=== PATIENT | female | born 1980 | race Caucasian/White ===

== ENCOUNTER 2017-04-30 20:13 | Emergency (ER) | payer OTHER ==
--- NOTE | 2017-04-30 20:49 | ERPHSYRPT ---
- History of Present Illness Time Seen by Provider: 04/30/17 20:40 Source: patient Exam Limitations: no limitations Patient Subjective Stated Complaint: Pt C/O right lateral foot pain for 3 days. Denies specific injury. Sts has been working more than normal. Rates pain 8/ 10. Sts current prescription pain medication she takes for her back is not helping the pain. Triage Nursing Assessment: Pt alert, oriented, answers all questions appropriately. Skin pink, warm, dry. Resps non-labored. Pt ambulatory with limp noted however gait steady. + pedal pulses noted. Cap refill less than 3 seconds. Facial grimace with light touch right lateral midfoot. Physician History: Pt is c/o right foot swelling and pain x 3 days, she does not recall any injury , but was diagnosed with right thigh superficial phlebitis 3 days ago, and started on Aspirin. She denies fever, chest pain, cough, SOB, nausea, or other complaints. Method of Injury: unknown Occurred: days ago (3) Severity of Pain-Max: mild Severity of Pain-Current: mild Lower Extremities Pain: foot: right Modifying Factors: Improves With: immobilization, movement Associated Symptoms: none Allergies/Adverse Reactions: erythromycin base Adverse Reaction (Verified 04/30/17 20:19) Itching PT STATES ITCHING/SWELLING Home Medications: Citalopram Hydrobromide [Celexa] 40 mg PO DAILY 05/10/14 [History] Cyclobenzaprine HCl 10 mg [Cyclobenzaprine 10 MG] 10 mg PO TID 05/10/14 [ History] Gabapentin [Neurontin] 600 mg PO TID 05/10/14 [History] Glimepiride 4 mg [Amaryl 4 mg] 4 mg PO DAILY 05/10/14 [History] Levothyroxine Sodium 88 Mcg [Synthroid 88 Mcg] 88 mcg PO DAILY 05/10/14 [ History] Lisinopril 20 mg PO DAILY 05/10/14 [History] Lisinopril/Hydrochlorothiazide [Lisinopril-Hctz 10-12.5 mg Tab] 10 - 12.5 mg PO BID 05/10/14 [History] Carvedilol 3.125 mg [Coreg 3.125 MG] 3.125 mg PO BID 06/20/15 [History] Hydrocodone/APAP 10/325 mg [[place] 10/325 MG Tablet] 1 tab PO Q6HPRN PRN [History] Insulin Glulisine [Apidra Solostar] 20 unit SQ TIDWMEALS 05/05/16 [History] Insulin Degludec [Tresiba Flextouch U-100] 65 unit SQ HS 02/15/17 [History] Trazodone HCl 150 mg PO HS 02/15/17 [History] Hx Influenza Vaccination/Date Given: No Hx Pneumococcal Vaccination/Date Given: No Immunizations Up to Date: Yes - Review of Systems Constitutional: No Symptoms Musculoskeletal: Joint Pain, Other (right foot swelling) All Other Systems: Reviewed and Negative - Past Medical History Pertinent Past Medical History: Yes Neurological History: Migraines, Peripheral Neuropathy ENT History: No Pertinent History Cardiac History: Hypertension Respiratory History: No Pertinent History Endocrine Medical History: Diabetes Type II, Hypothyroidism Musculoskeletal History: Osteoarthritis GI Medical History: Polyps History: No Pertinent History, Other Psycho-Social History: Depression Female Reproductive Disorders: No Pertinent History Other Medical History: kidney stones in past,scoliosis - Past Surgical History Past Surgical History: Yes Neuro Surgical History: No Pertinent History Cardiac: No Pertinent History, Other Respiratory: No Pertinent History Gastrointestinal: No Pertinent History Genitourinary: No Pertinent History Musculoskeletal: No Pertinent History Female Surgical History: Section, Tubal Ligation Other Surgical History: , kidney stones removed, tubes in ears times 2,tonsil - Social History Smoking Status: Current every day smoker How long have you smoked: 15 Exposure to second hand smoke: No Drug Use: none Patient Lives Alone: No - Female History Hx Now: No - Nursing Vital Signs Nursing Vital Signs: Initial Vital Signs Temperature 98.4 F 04/30/17 20:24 Pulse Rate 113 H 04/30/17 20:24 Respiratory Rate 18 04/30/17 20:24 Blood Pressure 178/101 04/30/17 20:24 O2 Sat by Pulse Oximetry 100 04/30/17 20:24 Pain Scale Pain Intensity 9 - Physical Exam General Appearance: no apparent distress Eyes, Ears, Nose, Throat Exam: normal ENT inspection Neck Exam: normal inspection, non-tender Cardiovascular/Respiratory Exam: chest non-tender, normal breath sounds, regular rate/rhythm, heart sounds normal, No no JVD Gastrointestinal/Abdominal Exam: non-tender, soft, no organomegaly Back Exam: normal inspection, No CVA tenderness Legs Exam: right leg: pain (right medial thigh: superficial thrombophlebitis, long, serpiginous induration, but no skin redness or edema.), bilateral leg: other (no direct calf tenderness, swelling, James's signs are negative) Ankle Exam: right ankle: non-tender, normal inspection Foot Exam: right foot: soft tissue tenderness, swelling (right lateral foot, no skin changes, discoloration.) Neuro/Tendon Exam: normal motor functions Mental Status Exam: alert, oriented x 3, cooperative Skin Exam: normal color, warm, dry, No rash SpO2 Interpretation: normal SpO2: 100 Oxygen Delivery: Room Air - Radiology Exams Foot X-ray Interpretation: Interpreted by me, Other (nondisplaced fracture of the 5th metatarsal base) - Radiology Ultrasound Exam Venous Lower Extremity Ultrasound: Other (negative DVT) Ordered Tests: Active Orders 24 hr Category Date Time Status IV Insertion STAT Care 04/30/17 22:08 Active ANKLE (3 VIEWS) Stat Exams 04/30/17 Completed FOOT (MINIMUM 3 VIEWS) Stat Exams 04/30/17 Completed VENOUS UNILAT/LIMITED EXTREMIT [US] Stat Exams 04/30/17 Completed ABG [ARTERIAL BLOOD GASES] Stat Lab 04/30/17 22:39 Completed BMP Stat Lab 04/30/17 21:09 Completed CBC W DIFF Stat Lab 04/30/17 21:09 Completed Glucose Stat Lab 04/30/17 00:01 Completed Uric Acid Stat Lab 04/30/17 21:09 Completed Medication Summary Discontinued Medications Generic Name Dose Route Start Last Admin Trade Name Freq PRN Reason Stop Dose Admin Sodium Chloride 1,000 mls @ 999 mls/hr 04/30/17 22:08 04/30/17 22:41 Sodium Chloride 0.9% 1000 Ml IV 04/30/17 23:08 999 mls/hr .Q1H1M STA Administration Sodium Chloride Confirm 04/30/17 22:39 Sodium Chloride 0.9% 1000 Ml Administered 04/30/17 22:40 Dose 1,000 mls @ ud .ROUTE .STK-MED ONE Ibuprofen 400 mg 04/30/17 23:42 04/30/17 23:46 Motrin 400 Mg PO 04/30/17 23:43 400 mg STAT ONE Administration Ibuprofen Confirm 04/30/17 23:46 Motrin 400 Mg Administered 04/30/17 23:47 Dose 400 mg .ROUTE .STK-MED ONE Insulin Human Regular 10 unit 04/30/17 22:09 04/30/17 22:41 Novolin R IV 04/30/17 22:10 10 unit STAT ONE Administration Insulin Human Regular Confirm 04/30/17 22:39 Novolin R Administered 04/30/17 22:40 Dose 10 unit .ROUTE .STK-MED ONE Lab/Rad Data: Laboratory Result Diagrams 04/30/17 21:09 04/30/17 21:09 Laboratory Results 04/30/17 04/30/17 04/30/17 Range/Units 22:39 21:09 21:09 WBC 14.8 H (4.0-10.5) K/mm3 RBC 4.76 (4.1-5.4) M/mm3 Hgb 15.0 (12.0-16.0) gm/dl Hct 44.8 (35-47) % MCV 94.1 (78-100) fl MCH 31.5 (26-32) pg MCHC 33.5 (32-36) g/dl RDW 13.6 (11.5-14.0) % Plt Count 319 (150-450) K/mm3 MPV 11.2 H (6-9.5) fl Gran % 82.1 H (36.0-66.0) % Lymphocytes % 12.2 L (24.0-44.0) % Monocytes % 5.1 (0.0-12.0) % Eosinophils % 0.3 (0.00-5.0) % Basophils % 0.3 (0.0-0.4) % Basophils # 0.04 (0-0.4) Puncture Site RW pCO2 29 L (35-45) mmHg pO2 46 L* (75-100) mmHg Base Excess -6.9 L (-2.0-2.0) O2 Saturation 83.5 L (94-100) g/dF ABG pH 7.37 (7.35-7.45) ABG HCO3 16.8 L* (22-28) ABG O2 Sat (Measured) 91.9 L (95-100) % Kermit Test YES A-a Gradient 67 a/A Ratio 0.41 Hemoglobin 15.7 Carboxyhemoglobin 7.8 H* (0.0-6.9) % THgb Methemoglobin 1.3 L (1.4-1.5) % Temperature 37.0 C POC O2 Flow Rate 21 % Sodium 129 L (136-145) mEq/L Potassium 3.9 4.4 (3.5-5.1) mEq/L Chloride 93 L (98-107) mEq/L Carbon Dioxide 20.3 L (21-32) mEq/L Anion Gap 19.8 H (5-15) MEQ/L BUN 14 (9-20) mg/dL Creatinine 1.09 (0.55-1.30) mg/dl Estimated GFR > 60 ML/MIN Glucose 747 H* (70-110) MG/DL Uric Acid 6.0 (2.6-6.0) mg/dL Calcium 9.2 (8.5-10.1) mg/dL 04/30/17 Range/Units 00:01 WBC (4.0-10.5) K/mm3 RBC (4.1-5.4) M/mm3 Hgb (12.0-16.0) gm/dl Hct (35-47) % MCV (78-100) fl MCH (26-32) pg MCHC (32-36) g/dl RDW (11.5-14.0) % Plt Count (150-450) K/mm3 MPV (6-9.5) fl Gran % (36.0-66.0) % Lymphocytes % (24.0-44.0) % Monocytes % (0.0-12.0) % Eosinophils % (0.00-5.0) % Basophils % (0.0-0.4) % Basophils # (0-0.4) Puncture Site pCO2 (35-45) mmHg pO2 (75-100) mmHg Base Excess (-2.0-2.0) O2 Saturation (94-100) g/dF ABG pH (7.35-7.45) ABG HCO3 (22-28) ABG O2 Sat (Measured) (95-100) % Kermit Test A-a Gradient a/A Ratio Hemoglobin Carboxyhemoglobin (0.0-6.9) % THgb Methemoglobin (1.4-1.5) % Temperature C POC O2 Flow Rate % Sodium (136-145) mEq/L Potassium (3.5-5.1) mEq/L Chloride (98-107) mEq/L Carbon Dioxide (21-32) mEq/L Anion Gap (5-15) MEQ/L BUN (9-20) mg/dL Creatinine (0.55-1.30) mg/dl Estimated GFR ML/MIN Glucose 323 H (70-110) MG/DL Uric Acid (2.6-6.0) mg/dL Calcium (8.5-10.1) mg/dL - Progress Progress: improved Progress Note: 05/01/17 00:54 Blood sugar improved after iv fluids and Isnulin, it is 323, Pain controlled with Motrin. I explained her our results, she understood, and will follow up with her PCP and Ambulatory Service Representative next week. - Departure Time of Disposition: 00:55 Departure Disposition: Home Clinical Impression: Hyperglycemia Metatarsal stress fracture of right foot Qualifiers: Encounter type: initial encounter Qualified Code(s): M84.374A - Stress fracture , right foot, initial encounter for fracture Condition: Stable Critical Care Time: Yes Critical Care Time(excluding separately billable procedures): 30-74 minutes Referrals: IMELDA WEBB [Primary Care Provider] - Instructions: Foot Fracture, Hyperglycemia -- Adult Additional Instructions: Rest with elevated leg x 2-3 days, apply ice to swelling, return if severe pain , swelling, discoloration of the toes, follow up with your PCP and Ambulatory Service Representative next week!
[2017-04-30 21:41] LABS: BASOPHIL % 0.3 % (0.0-0.4); Eosinophil % 0.3 % (0.00-5.0); Granulocytes % 82.1 % (36.0-66.0); Lymphocytes % 12.2 % (24.0-44.0); Mean Cell Volume 94.1 fl (78-100); Mean Corpuscular Hemoglobin 31.5 pg (26-32); Mean Platelet Volume 11.2 fl (6-9.5); Monocytes % 5.1 % (0.0-12.0); Platelet Count 319 K/mm3 (150-450); Red Blood Count 4.76 M/mm3 (4.1-5.4); Red Cell Distribution Width 13.6 % (11.5-14.0); White Blood Count 14.8 K/mm3 (4.0-10.5)
[2017-04-30 21:52] LABS: ANION GAP 19.8 MEQ/L (5-15); BLOOD UREA NITROGEN 14 mg/dL (9-20); CHLORIDE 93 mEq/L (98-107); Carbon Dioxide 20.3 mEq/L (21-32); Potassium 4.4 mEq/L (3.5-5.1); SODIUM 129 mEq/L (136-145)
[2017-04-30 22:06] LABS: Glucose 747 MG/DL (70-110)
[2017-04-30] MEDS ORDERED: Sodium Chloride 0.9% 1000 ML 1,000 ML IV STA (22:08)
[2017-04-30] MEDS ORDERED: NovoLIN R IV ONE (22:09)
--- NOTE | 2017-04-30 22:33 | XRAY ---
Indication: Pain and swelling. Thrombophlebitis diagnosis 3 days ago. Comparison: None 3 nonweightbearing views of the right foot demonstrates tiny heel spurs and nondisplaced healing fracture involving the proximal shaft of the fifth metatarsal. No other bony, articular, or soft tissue abnormalities.
--- NOTE | 2017-04-30 22:33 | XRAY ---
Indication: Pain and swelling. Thrombophlebitis diagnosis 3 days ago. Comparison: None 3 views of the right ankle demonstrates tiny heel spurs and nondisplaced healing fracture involving the proximal shaft of the fifth metatarsal. No other bony, articular, or soft tissue abnormalities
--- NOTE | 2017-04-30 22:37 | XRAY ---
Indication: Right ankle/foot swelling and pain. Two-dimensional sonogram and color Doppler imaging of the major venous vessels of the right leg was performed. Comparison: April 27, 2017. Again no thrombus seen in the examined deep venous vessels of the right leg including greater saphenous vein. Veins demonstrate normal compressibility. Venous waveforms are normal with and without augmentation. Lower medial thigh/knee again demonstrates subcutaneous venous varicosities with again intraluminal echogenicities now occluded. Impression: Lower medial thigh/knee occluding thrombophlebitis. Remaining right leg negative for DVT. Comment: Preliminary report was given.
[2017-04-30] MEDS ORDERED: NovoLIN R ONE (22:39)
[2017-04-30] MEDS ORDERED: Sodium Chloride 0.9% 1000 ML 1,000 ML ONE (22:39)
[2017-04-30 22:40] LABS: A-aADO2 67; ARTERIAL BLD GAS O2 SATURATION 91.9 % (95-100); ARTERIAL BLOOD GAS BASE EXCESS -6.9 (-2.0-2.0); ARTERIAL BLOOD GAS FIO2 21 %; ARTERIAL BLOOD GAS pH 7.37 (7.35-7.45)
[2017-04-30 22:41] LABS: ALLEN TEST OK? YES; ARTERIAL BLOOD GAS PO2 46 mmHg (75-100)
[2017-04-30] MEDS ORDERED: MOTRIN 400 MG PO ONE (23:42)
[2017-04-30] MEDS ORDERED: MOTRIN 400 MG ONE (23:46)
[2017-05-01 01:29] VITALS: BP 130/79; PULSE 99; O2SAT 98
== END 2017-05-01 01:30 | disposition home or self-care (01) ==
LOC: ED 20:13
DX: M84.374A Stress fracture, right foot, initial encounter for fracture (principal); R73.9 Hyperglycemia, unspecified; M79.671 Pain in right foot; Z79.899 Other long term (current) drug therapy; Z79.84 Long term (current) use of oral hypoglycemic drugs; Z79.4 Long term (current) use of insulin; Z79.891 Long term (current) use of opiate analgesic
CPT/HCPCS: 36000; 36415; 36600; 73610; 73630; 80048; 82375; 82803; 82947; 84550; 85025; 93971; 96360; 96374; 99284; A9270-GY

== ENCOUNTER 2017-09-08 07:50 | Day surgery (SDC) | payer OTHER ==
[2017-09-08] MEDS ORDERED: Lactated Ringers 1,000 ML IV ONE (07:51)
[2017-09-08] MEDS ORDERED: Xylocaine-Mpf 2 ML IJ ONE (07:51)
[2017-09-08] MEDS ORDERED: DIPRIVAN 200 MG/20 ML IV ONE (07:51)
[2017-09-08] MEDS ORDERED: DEXAMETHASONE 10 MG/ML VIAL PF IJ ONE (07:51)
--- NOTE | 2017-09-08 11:09 | XRAY ---
Indication: Left L5-S1 SHANIA. Intraoperative fluoroscopy was provided for 51 seconds. 5 digital spot images submitted for interpretation demonstrates single posterior spinal needle tip projecting over the left L5-S1 facet. Tiny contrast injected for needle tip placement. Correlate with intraoperative findings/report.
--- NOTE | 2017-09-08 11:12 | XRAY ---
51 seconds fluoroscopy time in surgery for left L5-S1 SHANIA.
--- NOTE | 2017-09-09 08:25 | OP ---
DATE OF PROCEDURE: 09/08/2017 0948 SURGEON: Laurence Graf D.O. PREOPERATIVE DIAGNOSES: Degenerative lumbar spine disease, lumbar spondylosis. POSTOPERATIVE DIAGNOSES: Degenerative lumbar spine disease, lumbar spondylosis. PROCEDURE PERFORMED: Left L5 epidural steroid injection under fluoroscopic guidance. DESCRIPTION OF PROCEDURE: The patient was taken to the operating room and laid in the prone position on the table. Skin over the injection site was prepped and draped in sterile fashion. Under fluoroscope bony anatomy at the targeted injection site was visualized. Induction agent was given as per anesthesia while vital signs were monitored. Local anesthetic agent was introduced to anesthetize the skin in the subcutaneous tissue through injection site. Under fluoroscopic guidance a #22-gauge standard spinal needle was advanced into the target epidural space. 1 cc of preservative free Decadron was injected into each of the target epidural space. While the needle was being removed normal saline was simultaneously infiltrated to avoid sterile needle tract. Skin was cleansed with alcohol and then a bandage was applied. After the procedure there was 80% pain reduction after the procedure. No complications or adverse consequences were observed. The patient was returned to the holding area until stabilized before discharge to home. The patient will be followed up within ten days after the injection for reevaluation.
== END 2017-09-08 10:46 | disposition home or self-care (01) ==
LOC: SDC-PAIN 07:50
PROVIDERS: ATTEND Internal Medicine
DX: M54.16 Radiculopathy, lumbar region (principal); M47.26 Other spondylosis with radiculopathy, lumbar region; M54.5 Low back pain; M62.838 Other muscle spasm
CPT/HCPCS: 64483; 72100; 77003; J2704; Q9967; J1100

== ENCOUNTER 2018-11-09 09:38 | Day surgery (SDC) | payer OTHER ==
[2018-11-09] MEDS ORDERED: Depo-Medrol 40 MG/ML IM ONE (09:39)
[2018-11-09] MEDS ORDERED: Marcaine 0.5% SDV 10 ML IJ ONE (09:39)
[2018-11-09] MEDS ORDERED: DIPRIVAN 200 MG/20 ML IV ONE (11:07)
[2018-11-09] MEDS ORDERED: Ketamine HCl 50 MG/ML ONE (11:08)
--- NOTE | 2018-11-09 12:08 | XRAY ---
Indication: Bilateral L4-S1 MBB. Intraoperative fluoroscopy was provided for 7 seconds. Single digital spot image submitted for interpretation demonstrates posterior needle tips projecting over the expected course of the left and right L4-S1 nerve roots. Correlate with intraoperative findings/report.
--- NOTE | 2018-11-09 12:10 | XRAY ---
7 seconds of fluoroscopy was used in surgery for bilateral L4-L5 and L5-S1 MBB.
[2018-11-09] MEDS ORDERED: Lactated Ringers 1,000 ML IV ONE (13:33)
== END 2018-11-09 11:38 | disposition home or self-care (01) ==
LOC: SDC-PAIN 09:38
PROVIDERS: ATTEND Psychiatry & Neurology Pain Medicine
DX: M47.816 Spondylosis without myelopathy or radiculopathy, lumbar region (principal); E11.9 Type 2 diabetes mellitus without complications; I10 Essential (primary) hypertension; F32.9 Major depressive disorder, single episode, unspecified
CPT/HCPCS: 64493; 64494; 72020; 77002; 82962; 84703; J1030; J2704

== ENCOUNTER 2018-12-14 07:55 | Day surgery (SDC) | payer OTHER ==
[2018-12-14] MEDS ORDERED: Xylocaine 1% Vial 30 ML PF IJ ONE (07:56)
[2018-12-14] MEDS ORDERED: Marcaine 0.5% SDV 10 ML IJ ONE (07:56)
[2018-12-14] MEDS ORDERED: Depo-Medrol 40 MG/ML IM ONE (07:56)
[2018-12-14] MEDS ORDERED: Ketamine HCl 50 MG/ML ONE (08:36)
[2018-12-14] MEDS ORDERED: DIPRIVAN 200 MG/20 ML IV ONE ×2 (09:18→09:31)
--- NOTE | 2018-12-14 12:12 | XRAY ---
Indication: Left L4-S1 RFA. Intraoperative fluoroscopy was provided for 21 seconds. 2 digital spot images submitted for interpretation demonstrates posterior needle tips projecting over the expected course of the left L4-S1 nerve roots. Correlate with intraoperative findings/report.
--- NOTE | 2018-12-14 12:21 | XRAY ---
21 seconds fluoroscopy time in surgery for left L4-S1 RFA.
[2018-12-14] MEDS ORDERED: Lactated Ringers 1,000 ML IV ONE (15:50)
== END 2018-12-14 09:55 | disposition home or self-care (01) ==
LOC: SDC-PAIN 07:55
PROVIDERS: ATTEND Psychiatry & Neurology Pain Medicine
DX: M47.816 Spondylosis without myelopathy or radiculopathy, lumbar region (principal); E11.9 Type 2 diabetes mellitus without complications; I10 Essential (primary) hypertension; Z79.899 Other long term (current) drug therapy
CPT/HCPCS: 72100; 77002; 84703; J1030; J2001; J2704

== ENCOUNTER 2019-01-18 08:00 | Day surgery (SDC) | payer OTHER ==
[~2019-01-18 08:00] MED LIST: DIPRIVAN 200 MG/20 ML IV ONE; Ketamine HCl 50 MG/ML ONE
[2019-01-18] MEDS ORDERED: Depo-Medrol 40 MG/ML IM ONE (08:01)
[2019-01-18] MEDS ORDERED: Marcaine 0.5% SDV 10 ML IJ ONE (08:01)
[2019-01-18] MEDS ORDERED: Xylocaine 1% Vial 30 ML PF IJ ONE (08:01)
--- NOTE | 2019-01-18 11:37 | XRAY ---
Indication: Right L4-S1 RFA. Intraoperative fluoroscopy was provided for 18 seconds. 3 digital spot images submitted for interpretation demonstrates posterior needle tips projecting over the expected course of the right L4-S1 nerve roots. Correlate with intraoperative findings/report.
--- NOTE | 2019-01-18 13:04 | XRAY ---
18 seconds fluoroscopy time in surgery for right L4-S1 RFA.
[2019-01-18] MEDS ORDERED: Lactated Ringers 1,000 ML IV ONE (13:20)
== END 2019-01-18 09:48 | disposition home or self-care (01) ==
LOC: SDC-PAIN 08:00
PROVIDERS: ATTEND Psychiatry & Neurology Pain Medicine
DX: M47.816 Spondylosis without myelopathy or radiculopathy, lumbar region (principal); E11.9 Type 2 diabetes mellitus without complications; I10 Essential (primary) hypertension; R00.0 Tachycardia, unspecified; Z79.899 Other long term (current) drug therapy
CPT/HCPCS: 64635; 64636; 72100; 77002; 82962; 84703; J1030; J2001; J2704

== ENCOUNTER 2019-05-13 17:56 | Emergency (ER) | payer OTHER ==
[2019-05-13 19:27] VITALS: O2SAT 100
--- NOTE | 2019-05-13 19:42 | ERPHSYRPT ---
- History of Present Illness Time Seen by Provider: 05/13/19 19:28 Source: patient Exam Limitations: no limitations Patient Subjective Stated Complaint: pt states, "My rt great toe started hurting on Wednesday. I have applied neosporin to it but the pain has just gotten worse". Triage Nursing Assessment: rt great toe is reddned around, has blister to left medial side of toenail with open area 1cm L x 1cm W x 0.1cm D medial to that. Pt states it has been draining clear, yellow. Pt has edema to rt lower leg, nonpitting. Pt stands on her feet at work. Pt rates pain a 10. Physician History: Patient has injury to right great toe on the medial side. Patient states she stubbed it earlier this week. She has had some continued pain and drainage since then. She does have known diabetes. Location: great right toe Quality: wound Radiation: none Severity: mild Duration: a few days Timing: after injury Modifying factors/associated signs and symptoms: neosporin Allergies/Adverse Reactions: erythromycin base Adverse Reaction (Verified 04/30/17 20:19) Itching PT STATES ITCHING/SWELLING Home Medications: Citalopram Hydrobromide [Celexa] 40 mg PO DAILY 05/10/14 [History] Gabapentin [Neurontin] 800 mg PO TID 05/10/14 [History] Glimepiride 4 mg [Amaryl 4 mg] 4 mg PO DAILY 05/10/14 [History] Levothyroxine Sodium 88 Mcg [Synthroid 88 Mcg] 88 mcg PO DAILY 05/10/14 [ History] Lisinopril 20 mg PO DAILY 05/10/14 [History] Lisinopril/Hydrochlorothiazide [Lisinopril-Hctz 10-12.5 mg Tab] 10 - 12.5 mg PO BID 05/10/14 [History] Carvedilol 3.125 mg [Coreg 3.125 MG] 3.125 mg PO BID 06/20/15 [History] Hydrocodone/APAP 10/325 mg [[place] 10/325 MG Tablet] 1 tab PO Q6HPRN PRN [History] Insulin Glulisine [Apidra Solostar] 20 unit SQ TIDWMEALS 05/05/16 [History] Insulin Degludec [Tresiba Flextouch U-100] 65 unit SQ HS 02/15/17 [History] Trazodone HCl 150 mg PO HS 02/15/17 [History] Omeprazole 20 MG [Prilosec 20 mg] 20 mg PO DAILY 07/13/17 [History] Celecoxib [Celebrex] 200 mg PO DAILY 09/20/17 [History] Hx Tetanus, Diphtheria Vaccination/Date Given: Yes Hx Influenza Vaccination/Date Given: No Hx Pneumococcal Vaccination/Date Given: No Immunizations Up to Date: Yes - Review of Systems Constitutional: No Fever, No Chills Eyes: No Symptoms Ears, Nose, & Throat: No Symptoms Respiratory: No Cough, No Dyspnea Cardiac: No Chest Pain, No Edema, No Syncope Abdominal/Gastrointestinal: No Abdominal Pain, No Nausea, No Vomiting, No Diarrhea Genitourinary Symptoms: No Dysuria Musculoskeletal: Other (foot wound, toe wound ), No Back Pain, No Neck Pain Skin: No Rash Neurological: No Dizziness, No Focal Weakness, No Sensory Changes Psychological: No Symptoms Endocrine: No Symptoms All Other Systems: Reviewed and Negative - Past Medical History Pertinent Past Medical History: Yes Neurological History: No Pertinent History ENT History: No Pertinent History Cardiac History: Hypertension Respiratory History: No Pertinent History Endocrine Medical History: Diabetes Type II, Hypothyroidism Musculoskeletal History: Osteoarthritis GI Medical History: Polyps History: No Pertinent History, Other Psycho-Social History: Depression Female Reproductive Disorders: No Pertinent History Other Medical History: kidney stones in past,scoliosis - Past Surgical History Past Surgical History: Yes Neuro Surgical History: No Pertinent History Cardiac: No Pertinent History, Other Respiratory: No Pertinent History Gastrointestinal: No Pertinent History Genitourinary: No Pertinent History Musculoskeletal: No Pertinent History Female Surgical History: Section, Tubal Ligation Other Surgical History: , kidney stones removed, tubes in ears times 2,tonsil - Social History Smoking Status: Current every day smoker How long have you smoked: 18 yrs Exposure to second hand smoke: No Drug Use: marijuana Patient Lives Alone: No - Female History Hx Last Menstrual Period: ablation Hx Now: No - Nursing Vital Signs Nursing Vital Signs: Initial Vital Signs Temperature 98.0 F 05/13/19 19:26 Pulse Rate 103 H 05/13/19 19:26 Respiratory Rate 15 05/13/19 19:26 Blood Pressure 177/95 05/13/19 19:26 O2 Sat by Pulse Oximetry 100 05/13/19 19:26 Pain Scale Pain Intensity 9 - Physical Exam General Appearance: alert Eyes, Ears, Nose, Throat Exam: moist mucous membranes Neck Exam: non-tender, supple Cardiovascular/Respiratory Exam: chest non-tender, normal breath sounds, regular rate/rhythm, no respiratory distress Gastrointestinal/Abdominal Exam: non-tender, guarding Back Exam: normal inspection, No vertebral tenderness Neuro/Tendon Exam: normal sensation, normal motor functions Mental Status Exam: alert, oriented x 3, cooperative Skin Exam: normal color, warm, dry SpO2: 100 Comments: Patient has toe injury, no obvious abscess or deformity. Appears to be diabetic foot ulcer with some surrounding cellulitis. full ROM without pain. no signs of septic join. Ordered Tests: Medication Summary Discontinued Medications Generic Name Dose Route Start Last Admin Trade Name Freq PRN Reason Stop Dose Admin Doxycycline Hyclate 100 mg 05/13/19 20:02 05/13/19 20:06 Vibramycin 100 Mg PO 05/13/19 20:03 100 mg STAT ONE Administration Doxycycline Hyclate Confirm 05/13/19 20:05 Vibramycin 100 Mg Administered 05/13/19 20:06 Dose 100 mg .ROUTE .STK-MED ONE - Progress Progress: unchanged, improved Progress Note: 05/13/19 21:29 We will give one dose of doxycycline here in the ER. It does appear to be infected toe wound. Patient has follow up with PCP on Wednesday. She will return here for new or changing symptoms. - Departure Departure Disposition: Home, Extended Care Facility Clinical Impression: Toe ulcer due to DM, Cellulitis Condition: Stable Critical Care Time: No Referrals: IMELDA WEBB [Primary Care Provider] - Instructions: Cellulitis (Skin Infection), Adult (DC), Toe Injury (DC) Additional Instructions: Reexam with PCP in 24-48 hours Prescriptions: Doxycycline Hyclate 100 mg [Vibramycin 100 MG] 100 mg PO BID #14 tab
[2019-05-13] MEDS ORDERED: Vibramycin 100 MG PO ONE (20:02)
[2019-05-13] MEDS ORDERED: Vibramycin 100 MG ONE (20:05)
[2019-05-13 20:21] VITALS: BP 158/82; PULSE 85
== END 2019-05-13 20:18 | disposition home or self-care (01) ==
LOC: ED 17:56
DX: E11.622 Type 2 diabetes mellitus with other skin ulcer (principal); L03.90 Cellulitis, unspecified; Z79.899 Other long term (current) drug therapy; I10 Essential (primary) hypertension; E03.9 Hypothyroidism, unspecified
CPT/HCPCS: 99283; A9270-GY

== ENCOUNTER 2019-08-04 11:46 | Emergency (ER) | payer OTHER ==
--- NOTE | 2019-08-04 11:50 | ERPHSYRPT ---
- History of Present Illness Time Seen by Provider: 08/04/19 11:49 Source: patient Exam Limitations: no limitations Physician History: This is a 39-year-old white female who is insulin-dependent diabetic, has hypertension and peripheral neuropathy who presents with pain in the coccyx area after falling yesterday evening. Patient slipped on her steps at her home patient denies injury or pain at any other site. Patient use naproxen without much benefit. Patient is here for evaluation and management. Occurred: yesterday Reason for Fall: slipped, fell from standing pos Injuries/Pain Location: back, lower (Including sacrum and coccyx) Loss of Consciousness: no loss of consciousness Quality: aching Severity of Pain-Max: moderate Severity of Pain-Current: moderate Modifying Factors: Improves With: movement (Worsens) Associated Symptoms (Fall): trouble walking (Hurts to walk) Allergies/Adverse Reactions: erythromycin base Adverse Reaction (Verified 04/30/17 20:19) Itching PT STATES ITCHING/SWELLING Home Medications: Citalopram Hydrobromide [Celexa] 40 mg PO DAILY 05/10/14 [History] Gabapentin [Neurontin] 800 mg PO TID 05/10/14 [History] Glimepiride 4 mg [Amaryl 4 mg] 4 mg PO DAILY 05/10/14 [History] Levothyroxine Sodium 88 Mcg [Synthroid 88 Mcg] 88 mcg PO DAILY 05/10/14 [ History] Lisinopril/Hydrochlorothiazide [Lisinopril-Hctz 10-12.5 mg Tab] 10 - 12.5 mg PO BID 05/10/14 [History] lisinopriL [Lisinopril] 20 mg PO DAILY 05/10/14 [History] Carvedilol 3.125 mg [Coreg 3.125 MG] 3.125 mg PO BID 06/20/15 [History] Hydrocodone/APAP 10/325 mg [[place] 10/325 MG Tablet] 1 tab PO Q6HPRN PRN [History] Insulin Glulisine [Apidra Solostar] 20 unit SQ TIDWMEALS 05/05/16 [History] Insulin Degludec [Tresiba Flextouch U-100] 65 unit SQ HS 02/15/17 [History] Trazodone HCl 150 mg PO HS 02/15/17 [History] Omeprazole 20 MG [Prilosec 20 mg] 20 mg PO DAILY 07/13/17 [History] Celecoxib [Celebrex] 200 mg PO DAILY 09/20/17 [History] Hx Tetanus, Diphtheria Vaccination/Date Given: Yes Hx Influenza Vaccination/Date Given: No Hx Pneumococcal Vaccination/Date Given: No - Review of Systems Constitutional: No Symptoms Eyes: No Symptoms Ears, Nose, & Throat: No Symptoms Respiratory: No Symptoms Cardiac: No Symptoms Abdominal/Gastrointestinal: No Symptoms Genitourinary Symptoms: No Symptoms Musculoskeletal: Back Pain, Fall, Injury, Other (Sacrum and coccyx pain) Skin: No Symptoms Neurological: No Symptoms Psychological: No Symptoms Endocrine: No Symptoms Hematologic/Lymphatic: No Symptoms Immunological/Allergic: No Symptoms All Other Systems: Reviewed and Negative - Past Medical History Pertinent Past Medical History: Yes Neurological History: Peripheral Neuropathy ENT History: No Pertinent History Cardiac History: High Cholesterol, Hypertension Respiratory History: Pneumonia Endocrine Medical History: Diabetes Type II Musculoskeletal History: Fractures, Osteoarthritis GI Medical History: Polyps History: No Pertinent History, Other Psycho-Social History: Depression Female Reproductive Disorders: No Pertinent History Other Medical History: HX FX 5TH METATARSAL RIGHT AND LEFT WITH MOST RECENT 2016 , CHRONIC BACK ISSUES WITH SCOLIOSIS - Past Surgical History Past Surgical History: Yes Neuro Surgical History: No Pertinent History Cardiac: No Pertinent History, Other Respiratory: No Pertinent History Gastrointestinal: No Pertinent History Genitourinary: No Pertinent History Musculoskeletal: No Pertinent History Female Surgical History: Section, Tubal Ligation Other Surgical History: , kidney stones removed, tubes in ears times 2,tonsil - Social History Smoking Status: Current every day smoker How long have you smoked: 18 yrs Exposure to second hand smoke: No Drug Use: marijuana Patient Lives Alone: No - Nursing Vital Signs Nursing Vital Signs: Initial Vital Signs Temperature 97.0 F 08/04/19 11:48 Pulse Rate 104 H 08/04/19 11:48 Respiratory Rate 18 08/04/19 11:48 Blood Pressure 125/98 08/04/19 11:48 O2 Sat by Pulse Oximetry 100 08/04/19 11:48 Pain Scale Pain Intensity 10 - Renetta Coma Score Best Eye Response ([place]): (4) open spontaneously Best Verbal Response ([place]): (5) oriented Best Motor Response ([place]): (6) obeys commands Renetta Total: 15 - Physical Exam General Appearance: moderate distress, alert, anxiety Head Injury: no evidence of injury Eye Exam: PERRL/EOMI, eyes nml inspection ENT Exam: airway nml Neck Exam: supple, trachea midline, full range of motion, normal alignment Respiratory/Chest Exam: chest tenderness, normal breath sounds, No respiratory distress Gastrointestinal Exam: No soft, No tenderness Genitalia Exam: No tenderness Rectal Exam: No not done Back Exam: decreased range of motion, point tenderness, No CVA tenderness Extremity Exam: normal inspection, normal range of motion, pelvis stable Neurologic Exam: alert, oriented x 3, cooperative, community relations liaison II-XII nml as tested Skin Exam: normal color, warm, dry SpO2 Interpretation: normal O2 Delivery: Room Air Ordered Tests: Active Orders 24 hr Category Date Time Status LUMBAR LIMITED (2 OR 3 VIEWS) Stat Exams 08/04/19 12:23 Completed SACRUM AND COCCYX Stat Exams 08/04/19 13:04 Completed Medication Summary Discontinued Medications Generic Name Dose Route Start Last Admin Trade Name Geoffq PRN Reason Stop Dose Admin Hydromorphone HCl 0.5 mg 08/04/19 12:27 08/04/19 12:37 Hydromorphone 1 Mg/Ml Ampule IM 08/04/19 12:28 0.5 mg STAT ONE Administration Hydromorphone HCl Confirm 08/04/19 12:34 Hydromorphone 1 Mg/Ml Ampule Administered 08/04/19 12:35 Dose 1 mg .ROUTE .STK-MED ONE Ketorolac Tromethamine 60 mg 08/04/19 12:27 08/04/19 12:37 Toradol 30 Mg Injection IM 08/04/19 12:28 60 mg STAT ONE Administration Ketorolac Tromethamine Confirm 08/04/19 12:33 Toradol 30 Mg Injection Administered 08/04/19 12:34 Dose 60 mg .ROUTE .STK-MED ONE Orphenadrine Citrate 60 mg 08/04/19 12:28 08/04/19 12:37 Norflex 60 Mg/2 Ml IM 08/04/19 12:29 60 mg STAT ONE Administration Orphenadrine Citrate Confirm 08/04/19 12:34 Norflex 60 Mg/2 Ml Administered 08/04/19 12:35 Dose 60 mg .ROUTE .STK-MED ONE - Progress Progress: improved Progress Note: 08/04/19 13:27 The x-ray of the sacrum and coccyx reveals no acute bony fractures. The x-ray of the lumbar spine reveals no evidence of acute fracture or subluxation Counseled pt/family regarding: diagnosis, need for follow-up, rad results - Departure Departure Disposition: Home Clinical Impression: Fall, Contusion Condition: Stable Critical Care Time: No Referrals: IMELDA WEBB [Primary Care Provider] - Additional Instructions: Is back to the tender areas 3 times a day for the next 48 hours. Add ibuprofen or naproxen for pain control. Follow-up with your primary care physician for persistent symptoms Prescriptions: Carisoprodol 350 mg [Soma 350 mg] 350 mg PO Q12H PRN PRN #6 tablet MDD 2 PRN Reason: Muscle Spasms Oxycodone HCl/Acetaminophen [Percocet 5-325 mg Tablet] 1 each PO Q12H PRN PRN # 6 tablet MDD 2 PRN Reason: Pain
[2019-08-04] MEDS ORDERED: TORAdol 30 mg Injection IM ONE (12:27)
[2019-08-04] MEDS ORDERED: Hydromorphone 1 mg/ml Ampule IM ONE (12:27)
[2019-08-04] MEDS ORDERED: Norflex 60 MG/2 ML IM ONE (12:28)
[2019-08-04] MEDS ORDERED: TORAdol 30 mg Injection ONE (12:33)
[2019-08-04] MEDS ORDERED: Hydromorphone 1 mg/ml Ampule ONE (12:34)
[2019-08-04] MEDS ORDERED: Norflex 60 MG/2 ML ONE (12:34)
--- NOTE | 2019-08-04 13:17 | XRAY ---
Indication: Pain following fall. Comparison: November 06, 2013. 3 views of the lumbar spine demonstrates stable normal lumbar alignment with minimal L5-S1 disc space narrowing and T10-T11 endplate spurring. No new/acute findings.
--- NOTE | 2019-08-04 13:20 | XRAY ---
Indication: Pain following fall. Comparison: November 06, 2013. 3 views of the sacrum/coccyx again demonstrates sacralized L5 and a few pelvic phleboliths. No new/acute bony, articular, or soft tissue abnormalities.
[2019-08-04 13:53] VITALS: BP 130/89; PULSE 96; O2SAT 97
== END 2019-08-04 13:52 | disposition home or self-care (01) ==
LOC: ED 11:46
DX: S30.0XXA Contusion of lower back and pelvis, initial encounter (principal); W01.0XXA Fall on same level from slipping, tripping and stumbling without subsequent striking against object, initial encounter; Y93.9 Activity, unspecified; Y92.89 Other specified places as the place of occurrence of the external cause; I10 Essential (primary) hypertension; G62.9 Polyneuropathy, unspecified; E11.9 Type 2 diabetes mellitus without complications; E78.00 Pure hypercholesterolemia, unspecified; Z86.010 Personal history of colon polyps
CPT/HCPCS: 72100; 72220; 96372; 99284; J1170; J1885; J2360

== ENCOUNTER 2021-12-10 06:56 | Day surgery (SDC) | payer OTHER ==
[2021-12-10] MEDS ORDERED: Depo-Medrol 40 MG/ML IM ONE (06:57)
[2021-12-10] MEDS ORDERED: Marcaine Mpf 0.5% Vial 30 Ml IJ ONE (06:57)
[2021-12-10] MEDS ORDERED: XYLOCAINE-MPF 1% 5ML SDV IJ ONE (06:57)
[2021-12-10] MEDS ORDERED: DIPRIVAN 200 MG/20 ML IV ONE (08:09)
[2021-12-10] MEDS ORDERED: Lactated Ringers 1,000 ML IV ONE (08:37)
--- NOTE | 2021-12-10 10:48 | XRAY ---
Indication: Left L4-S1 RFA. Intraoperative fluoroscopy provided for 25 seconds. 4 digital spot image submitted for interpretation demonstrates posterior needle tips projecting over the expected left L4-S1 nerve roots. Correlate with intraoperative findings/report.
--- NOTE | 2021-12-10 11:02 | XRAY ---
25 seconds of fluoroscopy was used in surgery for a left L4-S1 RFA.
== END 2021-12-10 08:40 | disposition home or self-care (01) ==
LOC: SDC-PAIN 06:56 → EDSTATUS 11:55
PROVIDERS: ATTEND Psychiatry & Neurology Pain Medicine
DX: M47.816 Spondylosis without myelopathy or radiculopathy, lumbar region (principal); E11.9 Type 2 diabetes mellitus without complications; Z79.899 Other long term (current) drug therapy
CPT/HCPCS: 64635; 64636; 72100; 77002; 81025; 82947; J1030; J2704

== ENCOUNTER 2021-12-17 06:40 | Day surgery (SDC) | payer OTHER ==
[2021-12-17] MEDS ORDERED: Depo-Medrol 40 MG/ML IM ONE (06:41)
[2021-12-17] MEDS ORDERED: Sodium Chloride 0.9(Preservative Free) 10 ML IJ ONE (06:41)
[2021-12-17] MEDS ORDERED: XYLOCAINE-MPF 1% 5ML SDV IJ ONE (06:41)
[2021-12-17] MEDS ORDERED: DIPRIVAN 200 MG/20 ML IV ONE (08:15)
--- NOTE | 2021-12-17 10:05 | XRAY ---
Indication: Right L4-S1 RFA. Intraoperative fluoroscopy provided for 22 seconds. 3 digital spot image submitted for interpretation demonstrate posterior needle tips projecting over the expected right L4-S1 nerve roots. Correlate with intraoperative findings/report.
[2021-12-17] MEDS ORDERED: Lactated Ringers 1,000 ML IV ONE (10:51)
--- NOTE | 2021-12-17 12:06 | XRAY ---
22 seconds of fluoroscopy was used in surgery for a right L4-S1 RFA.
== END 2021-12-17 08:39 | disposition home or self-care (01) ==
LOC: SDC-PAIN 06:40
PROVIDERS: ATTEND Psychiatry & Neurology Pain Medicine
DX: M47.816 Spondylosis without myelopathy or radiculopathy, lumbar region (principal); E11.9 Type 2 diabetes mellitus without complications; Z79.899 Other long term (current) drug therapy
CPT/HCPCS: 64635; 64636; 72100; 77002; 81025; 82947; J1030; J2704

== ENCOUNTER 2022-04-22 08:18 | Day surgery (SDC) | payer OTHER ==
[2022-04-22] MEDS ORDERED: Xylocaine 1% Vial 30 ML PF IJ ONE (08:19)
[2022-04-22] MEDS ORDERED: BUPIVACAINE 0.5% VIAL IJ ONE (08:19)
[2022-04-22] MEDS ORDERED: Decadron 4 MG INJ IV ONE (08:19)
[2022-04-22] MEDS ORDERED: Depo-Medrol 40 MG/ML IM ONE (08:19)
[2022-04-22] MEDS ORDERED: DIPRIVAN 200 MG/20 ML IV ONE (09:56)
[2022-04-22] MEDS ORDERED: Lactated Ringers 1,000 ML IV ONE (10:29)
--- NOTE | 2022-04-22 19:45 | XRAY ---
Indication: Left hip, piriformis, and SI joint injection. Intraoperative fluoroscopy provided for 41 seconds. 5 digital spot images obtained prone submitted for interpretation demonstrates posterior needle tip projecting over the left SI joint. Additional needle tip projects over the left piriformis muscle and lateral to the left femur neck with small amount of contrast injected for both needle tip placement. Correlate with intraoperative findings/report.
--- NOTE | 2022-04-22 20:02 | XRAY ---
41 seconds fluoroscopy time in surgery for injections of the hip, piriformis muscle, and the SI joint on the left side.
== END 2022-04-22 10:35 | disposition home or self-care (01) ==
LOC: SDC-PAIN 08:18
PROVIDERS: ATTEND Psychiatry & Neurology Pain Medicine
DX: M16.12 Unilateral primary osteoarthritis, left hip (principal); M46.1 Sacroiliitis, not elsewhere classified; M79.18 Myalgia, other site; E11.9 Type 2 diabetes mellitus without complications; Z79.899 Other long term (current) drug therapy
CPT/HCPCS: 01992; 20552; 20610; 27096; 72202; 77002; 81025; 82947; G0260; J1030; J1100; J2001; J2704; Q9966

== ENCOUNTER 2022-06-24 08:45 | Day surgery (SDC) | payer OTHER ==
[2022-06-24] MEDS ORDERED: Sodium Chloride 0.9(Preservative Free) 10 ML IJ ONE (08:46)
[2022-06-24] MEDS ORDERED: LIDOCAINE HCL 1% 50 MG/5 ML VL PF IJ ONE (08:46)
[2022-06-24] MEDS ORDERED: Depo-Medrol 40 MG/ML IM ONE (08:46)
--- NOTE | 2022-06-24 11:29 | XRAY ---
Indication: Lumbar SHANIA. Intraoperative fluoroscopy provided for 17 seconds. 3 digital spot images submitted for interpretation demonstrates posterior needle tip projecting just posterior to L4-L5 interspace. Small amount of contrast injected for needle tip placement. Correlate with intraoperative findings/report.
--- NOTE | 2022-06-24 11:29 | XRAY ---
17 seconds of fluoroscopy was used in surgery for a lumbar SHANIA.
[2022-06-24] MEDS ORDERED: DIPRIVAN 200 MG/20 ML IV ONE (13:48)
[2022-06-24] MEDS ORDERED: Lactated Ringers 1,000 ML IV ONE (13:59)
== END 2022-06-24 11:20 | disposition home or self-care (01) ==
LOC: SDC-PAIN 08:45
PROVIDERS: ATTEND Psychiatry & Neurology Pain Medicine
DX: M54.16 Radiculopathy, lumbar region (principal); E11.9 Type 2 diabetes mellitus without complications; Z79.899 Other long term (current) drug therapy
CPT/HCPCS: 62323; 72100; 77003; 81025; 82947; J1030; J2001; J2704; Q9966

== ENCOUNTER 2022-10-28 06:55 | Day surgery (SDC) | payer OTHER ==
[2022-10-28] MEDS ORDERED: Sodium Chloride 0.9(Preservative Free) 10 ML IJ ONE (06:56)
[2022-10-28] MEDS ORDERED: Depo-Medrol 40 MG/ML IM ONE (06:56)
[2022-10-28 07:10] LABS: HCG URINE TEST NEGATIVE (NEGATIVE)
[2022-10-28] MEDS ORDERED: DIPRIVAN 200 MG/20 ML IV ONE ×2 (08:22→08:31)
[2022-10-28] MEDS ORDERED: Lactated Ringers 1,000 ML IV ONE (14:25)
--- NOTE | 2022-10-28 19:18 | XRAY ---
Indication: Caudal SHANIA. Intraoperative fluoroscopy provided for 27 seconds. 2 digital spot image submitted for interpretation demonstrates caudal needle tip projecting mid sacrum. Small amount of contrast injected for needle tip placement. Correlate with intraoperative findings/report.
--- NOTE | 2022-10-28 19:25 | XRAY ---
27 seconds of fluoroscopy was used in surgery for a caudal SHANIA.
== END 2022-10-28 08:51 | disposition home or self-care (01) ==
LOC: SDC-PAIN 06:55
PROVIDERS: ATTEND Psychiatry & Neurology Pain Medicine
DX: M54.16 Radiculopathy, lumbar region (principal); E11.9 Type 2 diabetes mellitus without complications; Z79.899 Other long term (current) drug therapy
CPT/HCPCS: 62323; 72220; 77003; 81025; 82947; J1030; J2704; Q9966

== ENCOUNTER 2022-11-27 18:53 | Observation (INO) | payer OTHER ==
--- NOTE | 2022-11-27 19:15 | ERPHSYRPT ---
- History of Present Illness Time Seen by Provider: 11/27/22 19:14 Source: patient Exam Limitations: no limitations Physician History: This is a 42-year-old white female patient who is diabetic has depression, gastroesophageal reflux disease, hypothyroidism and hypertension and is a patient of nurse practitioner Alyssia. Labs were drawn in the office and the patient's blood sugar was found to be 726 and the potassium was 3.1. Patient has not been feeling well chronically. She also has been having swelling in her bilateral lower extremities for several weeks. Patient has never had ultrasounds but has been told several times that she needs to be evaluated for blood clots. Patient denies chest pain. Patient denies shortness of breath. Patient has no abdominal pain. Severity: moderate Associated Symptoms: denies symptoms, No shortness of breath, No chest pain, No fever Allergies/Adverse Reactions: erythromycin base Adverse Reaction (Verified 11/27/22 19:04) Itching PT STATES ITCHING/SWELLING Home Medications: Citalopram Hydrobromide [Celexa] 40 mg PO DAILY 05/10/14 [History] Gabapentin [Neurontin] 800 mg PO TID 05/10/14 [History] Glimepiride 4 mg [Amaryl 4 mg] 4 mg PO DAILY 05/10/14 [History] Levothyroxine Sodium 88 Mcg [Synthroid 88 Mcg] 88 mcg PO DAILY 05/10/14 [History] Lisinopril/Hydrochlorothiazide [Lisinopril-Hctz 10-12.5 mg Tab] 10 - 12.5 mg PO BID 05/10/14 [History] lisinopriL [Lisinopril] 20 mg PO DAILY 05/10/14 [History] Carvedilol 3.125 mg [Coreg 3.125 MG] 3.125 mg PO BID 06/20/15 [History] Hydrocodone/APAP 10/325 mg [[place] 10/325 MG TableT] 1 tab PO Q6HPRN PRN 08/21/15 [History] Insulin Glulisine [Apidra Solostar] 20 unit SQ TIDWMEALS 05/05/16 [History] Insulin Degludec [Tresiba Flextouch U-100] 65 unit SQ HS 02/15/17 [History] Trazodone HCl 150 mg PO HS 02/15/17 [History] Omeprazole 20 MG [Prilosec 20 mg] 20 mg PO DAILY 07/13/17 [History] Celecoxib [Celebrex] 200 mg PO DAILY 09/20/17 [History] Hx Tetanus, Diphtheria Vaccination/Date Given: Yes Hx Influenza Vaccination/Date Given: No Hx Pneumococcal Vaccination/Date Given: No Travel Risk - International Travel Have you traveled outside of the country in past 3 weeks: No - Coronavirus Screening Are you exhibiting any of the following symptoms?: No Close contact with a COVID-19 positive Pt in past 14-21 Days: No - Review of Systems Constitutional: No Symptoms Eyes: No Symptoms Ears, Nose, & Throat: No Symptoms Respiratory: No Symptoms Cardiac: No Symptoms Abdominal/Gastrointestinal: No Symptoms Genitourinary Symptoms: No Symptoms Musculoskeletal: No Symptoms Skin: Cellulitis (Bilateral lower extremities with associated swelling of bilateral lower extremities) Neurological: No Symptoms Psychological: No Symptoms Endocrine: No Symptoms Hematologic/Lymphatic: No Symptoms Immunological/Allergic: No Symptoms All Other Systems: Reviewed and Negative - Past Medical History Pertinent Past Medical History: Yes Neurological History: Peripheral Neuropathy ENT History: No Pertinent History Cardiac History: High Cholesterol, Hypertension Respiratory History: Asthma Endocrine Medical History: Diabetes Type II, Hypothyroidism Musculoskeletal History: Arthritis, Fractures GI Medical History: Polyps History: No Pertinent History, Other Psycho-Social History: Depression Female Reproductive Disorders: No Pertinent History Other Medical History: R foot fx; likely 5th MT based on hx - Past Surgical History Past Surgical History: Yes Neuro Surgical History: No Pertinent History Cardiac: No Pertinent History, Other Respiratory: No Pertinent History Gastrointestinal: No Pertinent History Genitourinary: No Pertinent History Musculoskeletal: No Pertinent History Female Surgical History: Section, Tubal Ligation Other Surgical History: , kidney stones removed, tubes in ears times 2,tonsil - Social History Smoking Status: Current every day smoker How long have you smoked: 18 yrs Exposure to second hand smoke: No Drug Use: marijuana Patient Lives Alone: No - Nursing Vital Signs Nursing Vital Signs: Initial Vital Signs Temperature 97.8 F 11/27/22 19:04 Pulse Rate 93 H 11/27/22 19:04 Respiratory Rate 20 11/27/22 19:04 Blood Pressure 177/100 11/27/22 19:04 O2 Sat by Pulse Oximetry 98 11/27/22 19:04 Pain Scale Pain Intensity 2 - Physical Exam General Appearance: no apparent distress, alert, anxiety Eye Exam: PERRL/EOMI, eyes nml inspection Ears, Nose, Throat Exam: normal ENT inspection, moist mucous membranes Neck Exam: normal inspection, non-tender, supple, full range of motion Respiratory Exam: normal breath sounds, respiratory distress, airway intact, No chest tenderness, No lungs clear Cardiovascular Exam: regular rate/rhythm, normal heart sounds, normal peripheral pulses Gastrointestinal/Abdomen Exam: No tenderness Pelvic Exam: not done Rectal Exam: not done Back Exam: normal inspection, normal range of motion, No CVA tenderness, No vertebral tenderness Extremity Exam: normal range of motion, pelvis stable, swelling (Bilateral lower extremity swelling with evidence of cellulitis especially in the ankle and dorsum of feet bilaterally), tenderness Neurologic Exam: alert, oriented x 3, cooperative, silk printer II-XII nml as tested, normal mood/affect, nml cerebellar function, nml station & gait, sensation nml Skin Exam: other (Bilateral lower extremity) Lymphatic Exam: No adenopathy SpO2 Interpretation: normal O2 Delivery: Room Air - Course Nursing assessment & vital signs reviewed: Yes Ordered Tests: Active Orders 24 hr Category Date Time Status [place] Representative STAT Care 11/27/22 19:49 Active IV Insertion STAT Care 11/27/22 19:48 Active POCT Glucose Check STAT Care 11/27/22 19:48 Active Pulse Oximetry (ED) STAT Care 11/27/22 19:48 Active Telemetry q4h Care 11/27/22 20:44 Active VENOUS BILATERAL EXTREMITY [US] Stat Exams 11/27/22 21:21 Completed CBC W DIFF Stat Lab 11/27/22 19:55 Completed CMP Stat Lab 11/27/22 19:55 Completed Lactic Acid Stat Lab 11/27/22 22:04 Received Lactic Acid Urgent Lab 11/27/22 19:58 Completed MAG [MAGNESIUM] Stat Lab 11/27/22 Received POCT GLUCOSE Stat Lab 11/27/22 21:31 Completed POCT GLUCOSE Stat Lab 11/27/22 22:31 Completed UA W/RFX UR CULTURE Stat Lab 11/27/22 20:54 Completed Transfer Order Routine Transfer 11/27/22 Ordered Medication Summary Discontinued Medications Generic Name Dose Route Start Last Admin Trade Name Freq PRN Reason Stop Dose Admin Sodium Chloride 1,000 mls @ 999 mls/hr 11/27/22 19:48 11/27/22 21:21 Sodium Chloride 0.9% 1000 Ml IV 11/27/22 20:48 999 mls/hr .Q1H1M STA Administration Potassium Chloride 20 meq in 100 mls @ 50 mls/hr 11/27/22 20:44 11/27/22 21:22 Potassium Chloride 20 Meq In Water 100ml IV 11/27/22 22:43 50 mls/hr STAT ONE Administration Sodium Chloride Confirm 11/27/22 21:18 Sodium Chloride 0.9% 1000 Ml Administered 11/27/22 21:19 Dose 1,000 mls @ ud .ROUTE .STK-MED ONE Potassium Chloride Confirm 11/27/22 21:18 Potassium Chloride 20 Meq In Water 100ml Administered 11/27/22 21:19 Dose 100 mls @ ud IV .STK-MED ONE Insulin Glargine 20 unit 11/27/22 22:37 Insulin Glargine 1 Unit SQ 11/27/22 22:38 STAT ONE Insulin Human Regular 12 unit 11/27/22 20:43 11/27/22 21:19 Insulin Regular, Human 1 Unit IV 11/27/22 20:44 12 unit STAT ONE Administration Insulin Human Regular Confirm 11/27/22 21:17 Insulin Regular, Human 1 Unit Administered 11/27/22 21:18 Dose 12 unit .ROUTE .STK-MED ONE Ondansetron HCl 4 mg 11/27/22 19:48 11/27/22 21:21 Ondansetron Hcl 4 Mg/2 Ml Vial IV 11/27/22 19:49 4 mg STAT ONE Administration Ondansetron HCl Confirm 11/27/22 21:15 Ondansetron Hcl 4 Mg/2 Ml Vial Administered 11/27/22 21:16 Dose 4 mg .ROUTE .STK-MED ONE Lab/Rad Data: Laboratory Result Diagrams 11/27/22 19:55 11/27/22 19:55 Laboratory Results 11/27/22 11/27/22 11/27/22 Range/Units 22:31 21:31 20:54 WBC (4.0-10.5) x10^3/uL RBC (4.1-5.4) x10^6/uL Hgb (12.0-16.0) g/dL Hct (35-47) % MCV (78-100) fL MCH (26-32) pg MCHC (32-36) g/dL RDW (11.5-14.0) % Plt Count (150-450) x10^3/uL MPV (7.5-11.0) fL Gran % (36.0-66.0) % Immature Gran % (Auto) (0.00-0.4) % Nucleat RBC Rel Count (0.00-0.1) % Eos # (Auto) (0-0.5) x10^3/uL Immature Gran # (Auto) (0.00-0.03) x10^3u/L Absolute Lymphs (auto) (1.0-4.6) x10^3/uL Absolute Monos (auto) (0.0-1.3) x10^3/uL Absolute Nucleated RBC (0.00-0.01) x10^3u/L Lymphocytes % (24.0-44.0) % Monocytes % (0.0-12.0) % Eosinophils % (0.00-5.0) % Basophils % (0.0-0.4) % Absolute Granulocytes (1.4-6.9) x10^3/uL Basophils # (0-0.4) x10^3/uL Sodium (137-145) mmol/L Potassium (3.5-5.1) mmol/L Chloride (98-107) mmol/L Carbon Dioxide (22-30) mmol/L Anion Gap (5-15) MEQ/L BUN (7-17) mg/dL Creatinine (0.52-1.04) mg/dL Estimated GFR ML/MIN Glucose (74-106) mg/dL POC Glucometer 309 H 451 H (74 to 106) mg/dL Lactic Acid (0.4-2.0) Calcium (8.4-10.2) mg/dL Total Bilirubin (0.2-1.3) mg/dL AST (14-36) U/L ALT (0-35) U/L Alkaline Phosphatase (38-126) U/L Serum Total Protein (6.3-8.2) g/dL Albumin (3.5-5.0) g/dL Urine Color Yellow (Yellow) Urine Appearance Clear (Clear) Urine pH 6.0 (4.6-8.0) Ur Specific [place] 1.010 (1.005-1.030) Urine Protein 30 (Negative) Urine Glucose (UA) >=1000 A (Negative) mg/dL Urine Ketones Negative (Negative) Urine Blood Negative (Negative) Urine Nitrite Negative (Negative) Urine Bilirubin Negative (Negative) Urine Urobilinogen 0.2 (0.2) mg/dL Ur Leukocyte Esterase Trace A (Negative) U Hyaline Cast (Auto) NONE SEEN (0-2) /LPF Urine Microscopic RBC 0-2 (0-5) /HPF Urine Microscopic WBC 6-10 A (0-5) /HPF Ur Epithelial Cells None Seen (None Seen) /HPF Urine Bacteria None Seen (None Seen) /HPF Urine Culture Reflexed NO (NO) 11/27/22 11/27/22 11/27/22 Range/Units 19:58 19:55 19:55 WBC 11.3 H (4.0-10.5) x10^3/uL RBC 4.00 L (4.1-5.4) x10^6/uL Hgb 12.8 (12.0-16.0) g/dL Hct 38.1 (35-47) % MCV 95.3 (78-100) fL MCH 32.0 (26-32) pg MCHC 33.6 (32-36) g/dL RDW 12.8 (11.5-14.0) % Plt Count 520 H (150-450) x10^3/uL MPV 9.8 (7.5-11.0) fL Gran % 71.1 H (36.0-66.0) % Immature Gran % (Auto) 0.5 H (0.00-0.4) % Nucleat RBC Rel Count 0.0 (0.00-0.1) % Eos # (Auto) 0.14 (0-0.5) x10^3/uL Immature Gran # (Auto) 0.06 H (0.00-0.03) x10^3u/L Absolute Lymphs (auto) 2.42 (1.0-4.6) x10^3/uL Absolute Monos (auto) 0.57 (0.0-1.3) x10^3/uL Absolute Nucleated RBC 0.00 (0.00-0.01) x10^3u/L Lymphocytes % 21.5 L (24.0-44.0) % Monocytes % 5.1 (0.0-12.0) % Eosinophils % 1.2 (0.00-5.0) % Basophils % 0.6 (0.0-0.4) % Absolute Granulocytes 8.01 H (1.4-6.9) x10^3/uL Basophils # 0.07 (0-0.4) x10^3/uL Sodium 127 L (137-145) mmol/L Potassium 2.9 L* (3.5-5.1) mmol/L Chloride 85 L (98-107) mmol/L Carbon Dioxide 36 H (22-30) mmol/L Anion Gap 9.5 (5-15) MEQ/L BUN 13 (7-17) mg/dL Creatinine 0.47 L (0.52-1.04) mg/dL Estimated GFR > 60.0 ML/MIN Glucose 475 H (74-106) mg/dL POC Glucometer (74 to 106) mg/dL Lactic Acid 2.1 H (0.4-2.0) Calcium 8.4 (8.4-10.2) mg/dL Total Bilirubin 0.50 (0.2-1.3) mg/dL AST 20 (14-36) U/L ALT 25 (0-35) U/L Alkaline Phosphatase 428 H (38-126) U/L Serum Total Protein 6.3 (6.3-8.2) g/dL Albumin 3.2 L (3.5-5.0) g/dL Urine Color (Yellow) Urine Appearance (Clear) Urine pH (4.6-8.0) Ur Specific [place] (1.005-1.030) Urine Protein (Negative) Urine Glucose (UA) (Negative) mg/dL Urine Ketones (Negative) Urine Blood (Negative) Urine Nitrite (Negative) Urine Bilirubin (Negative) Urine Urobilinogen (0.2) mg/dL Ur Leukocyte Esterase (Negative) U Hyaline Cast (Auto) (0-2) /LPF Urine Microscopic RBC (0-5) /HPF Urine Microscopic WBC (0-5) /HPF Ur Epithelial Cells (None Seen) /HPF Urine Bacteria (None Seen) /HPF Urine Culture Reflexed (NO) - Progress Progress: improved, re-examined Progress Note: 11/27/22 22:[address] Benton who is the telehospitalist covering this evening. This patient does not have DKA. However she does have hyperglycemia, hyponatremia, hypokalemia as well as a urinary tract infection. She is mildly dehydrated as well. I ordered venous Dopplers of her bilateral lower extremities which was negative for any DVT. Dr. Juan recommends equivalent dose of Lantus insulin for the patient's Tresiba. However, I did provide the patient with regular insulin 12 units and I am awaiting the results of the repeat Accu-Chek. She also wants to follow the patient with a sliding scale throughout the night and I will repeat labs in the morning. We will provide her with IV hydration and repeat labs in the morning. We will continue Rocephin intravenously to treat her urinary tract infection. This patient's medical issue is 1 of high complexity. Level of complexity in the work-up performed is based on review of the patient's past medical history, review of the patient's old labs, review of the patient's medication list, review the patient's drug allergy list, history of present illness and physical findings on examination. The work-up includes a CBC, CMP, urinalysis, IV line placement, intravenous fluids of normal saline infusion. I followed up on the results of the studies and the patient does have hyperglycemia, hyponatremia, hypokalemia. I do not think this patient has DKA. We will follow the above- stated observation inpatient regimen. Counseled pt/family regarding: lab results, diagnosis Medical Desision Making - Discussion of managment Care discussed with:: hospitalist (Dr. Juantelespitalist) Reviewed:: Test results, Need for additional workup Agreed on:: Treatment plan, place in obs Will see patient: in hospital - Diagnostic Testing Diagnostic test were ordered, analyzed, and reviewed by me: Yes - Risk of complications The pt has a high risk of morbidity or mortality based on: Decision regarding hospitilization or escalation of hosp level of care - Departure Clinical Impression: Hyponatremia, Hypokalemia, Hyperglycemia, UTI (urinary tract infection) Condition: Stable Critical Care Time: No Referrals: DOCTOR,NO FAMILY [Primary Care Provider] - Follow up/PCP as directed
[2022-11-27] MEDS ORDERED: Sodium Chloride 0.9% 1000 ML 1,000 ML IV STA (19:48)
[2022-11-27] MEDS ORDERED: Zofran 4 MG/2 ML VIAL IV ONE (19:48)
[2022-11-27 20:02] LABS: Absolute Neutrophil Ct (ANC) 8.01 x10^3/uL (1.4-6.9); BASOPHIL % 0.6 % (0.0-0.4); Basophil (Absolute #) 0.07 x10^3/uL (0-0.4); Eosinophil % 1.2 % (0.00-5.0); Eosinophil (Absolute #) 0.14 x10^3/uL (0-0.5); Hematocrit 38.1 % (35-47); Hemoglobin 12.8 g/dL (12.0-16.0); IMMATURE GRAN # 0.06 x10^3u/L (0.00-0.03); IMMATURE GRAN % 0.5 % (0.00-0.4); Lymphocyte (Absolute #) 2.42 x10^3/uL (1.0-4.6); Lymphocytes % 21.5 % (24.0-44.0); Mean Cell Volume 95.3 fL (78-100); Mean Corpuscular Hgb Concent. 33.6 g/dL (32-36); Mean Platelet Volume 9.8 fL (7.5-11.0); Monocyte (Absolute #) 0.57 x10^3/uL (0.0-1.3); Monocytes % 5.1 % (0.0-12.0); Neutrophil % 71.1 % (36.0-66.0); Platelet Count 520 x10^3/uL (150-450); Red Cell Distribution Width 12.8 % (11.5-14.0); White Blood Count 11.3 x10^3/uL (4.0-10.5)
[2022-11-27 20:15] LABS: ALBUMIN 3.2 g/dL (3.5-5.0); ALKALINE PHOSPHATASE 428 U/L (38-126); ANION GAP 9.5 MEQ/L (5-15); BLOOD UREA NITROGEN 13 mg/dL (7-17); CHLORIDE 85 mmol/L (98-107); Calcium 8.4 mg/dL (8.4-10.2); Carbon Dioxide 36 mmol/L (22-30); Creatinine 1 0.47 mg/dL (0.52-1.04); EST GLOMERULAR FILTRATION RATE > 60.0 ML/MIN; Glucose 475 mg/dL (74-106); SGOT/AST 20 U/L (14-36); SGPT/ALT 25 U/L (0-35); SODIUM 127 mmol/L (137-145); Total Protein 6.3 g/dL (6.3-8.2)
[2022-11-27 20:29] LABS: Potassium 2.9 mmol/L (3.5-5.1)
[2022-11-27] MEDS ORDERED: HUMULIN R IV ONE (20:43)
[2022-11-27] MEDS ORDERED: POTASSIUM CHLORIDE 20 mEq IN WATER 100ML 20 MEQ/100 ML BAG IV ONE (20:44)
[2022-11-27] MEDS ORDERED: Zofran 4 MG/2 ML VIAL ONE (21:15)
[2022-11-27] MEDS ORDERED: HUMULIN R ONE (21:17)
[2022-11-27] MEDS ORDERED: POTASSIUM CHLORIDE 20 mEq IN WATER 100ML 100 ML IV ONE (21:18)
[2022-11-27] MEDS ORDERED: Sodium Chloride 0.9% 1000 ML 1,000 ML ONE (21:18)
[2022-11-27 21:39] LABS: Appearance Clear (Clear); Bacteria None Seen /HPF (None Seen); Bilirubin Negative (Negative); Blood Negative (Negative); Epithelial Cells None Seen /HPF (None Seen); Glucose, Urine >=1000 mg/dL (Negative); Hyaline Casts NONE SEEN /LPF (0-2); Ketones Negative (Negative); Leukocyte Esterase Trace (Negative); Nitrite Negative (Negative); Protein,Urine Dip 30 (Negative); RBC 0-2 /HPF (0-5); Urobilinogen 0.2 mg/dL (0.2)
[2022-11-27 21:40] LABS: ADD URINE CULTURE? NO (NO)
[2022-11-27] MEDS ORDERED: Lantus Insulin SQ ONE (22:37)
--- NOTE | 2022-11-27 22:38 | XRAY ---
Indication: Bilateral leg tenderness and swelling. Two-dimensional sonogram and color Doppler imaging of the major venous vessels of the left and right leg performed. Comparison: None No thrombus seen in the examined deep venous vessels of the left and right leg including greater saphenous vein. Veins demonstrate normal compressibility. Venous waveforms are normal with and without augmentation. Impression: Left and right legs negative for DVT. Comment: Preliminary report was given.
[2022-11-28] MEDS ORDERED: Zofran 4 MG/2 ML VIAL IV PRN (00:37)
[2022-11-28] MEDS ORDERED: TYLENOL 325 MG PO PRN (00:37)
[2022-11-28] MEDS: Klor Con PO SCH ×4 (01:22→06:27)
[2022-11-28] MEDS: Sodium Chloride 0.9% 1000 ML 1,000 ML IV SCH ×2 (01:22→16:25)
--- NOTE | 2022-11-28 02:34 | PCM.HP ---
History of Present Illness - Chief Complaint Chief Complaint: Hyperglycemia, hypokalemia, hyponatremia, UTI Date: 11/28/22 History of Present Illness: This is a 42-year-old female admitted for hyperglycemia. She has past medical history of insulin-dependent diabetes, depression, hypothyroid, hypertension, GERD who presented to the ED this evening after, she was called by her physician's office due to elevated blood sugar on labs. On arrival she was afebrile, heart rate 93, blood pressure 177/100 labs significant for WBC 11, hemoglobin 12.8, sodium 127, potassium 2.9, serum bicarb 36, creatinine 0.47, glucose 475 UA with thousand glucose trace leukocyte Esterase. Dopplers of lower extremities were negative for DVT. In the ED she received 20 units of Lantus, 12 units of IV regular insulin, Zofran, potassium 20 mEq IV and NS 1 L. - Review of Systems Constitutional: No Symptoms Eyes: No Symptoms Ears, Nose, & Throat: No Symptoms Respiratory: No Symptoms Cardiac: Edema Abdominal/Gastrointestinal: No Symptoms Genitourinary Symptoms: Dysuria Musculoskeletal: No Symptoms Skin: No Symptoms Neurological: No Symptoms Psychological: No Symptoms Endocrine: No Symptoms Medications & Allergies Home Medications: Home Medication List Citalopram Hydrobromide [Celexa] 40 mg PO DAILY 05/10/14 [History Confirmed 08/04/19] Gabapentin [Neurontin] 800 mg PO TID 05/10/14 [History Confirmed 08/04/19] Glimepiride 4 mg [Amaryl 4 mg] 4 mg PO DAILY 05/10/14 [History Confirmed 08/04/19] Levothyroxine Sodium 88 Mcg [Synthroid 88 Mcg] 88 mcg PO DAILY 05/10/14 [History Confirmed 08/04/19] Lisinopril/Hydrochlorothiazide [Lisinopril-Hctz 10-12.5 mg Tab] 10 - 12.5 mg PO BID 05/10/14 [History Confirmed 08/04/19] lisinopriL [Lisinopril] 20 mg PO DAILY 05/10/14 [History Confirmed 08/04/19] Carvedilol 3.125 mg [Coreg 3.125 MG] 3.125 mg PO BID 06/20/15 [History Confirmed 08/04/19] Hydrocodone/APAP 10/325 mg [Pedro 10/325 MG TableT] 1 tab PO Q6HPRN PRN 08/21/15 [History Confirmed 08/04/19] Insulin Glulisine [Apidra Solostar] 20 unit SQ TIDWMEALS 05/05/16 [History Confirmed 08/04/19] Insulin Degludec [Tresiba Flextouch U-100] 65 unit SQ HS 02/15/17 [History Confirmed 08/04/19] Trazodone HCl 150 mg PO HS 02/15/17 [History Confirmed 08/04/19] Omeprazole 20 MG [Prilosec 20 mg] 20 mg PO DAILY 07/13/17 [History Confirmed 08/04/19] Celecoxib [Celebrex] 200 mg PO DAILY 09/20/17 [History Confirmed 08/04/19] Doxycycline Hyclate 100 mg [Vibramycin 100 MG] 100 mg PO BID #14 tab 05/13/19 [Rx Confirmed 08/04/19] Carisoprodol 350 mg [Soma 350 mg] 350 mg PO Q12H PRN PRN #6 tablet MDD 2 08/04/19 [Rx] Oxycodone HCl/Acetaminophen [Percocet 5-325 mg Tablet] 1 each PO Q12H PRN PRN #6 tablet MDD 2 08/04/19 [Rx] Allergies/Adverse Reactions: Allergies Allergy/AdvReac Type Severity Reaction Status Date / Time erythromycin base AdvReac Itching Verified 11/27/22 19:04 - Past Medical History Past Medical History: Yes Neurological History: Peripheral Neuropathy ENT History: No Pertinent History Cardiac History: High Cholesterol, Hypertension Respiratory History: Asthma Endocrine Medical History: Diabetes Type II, Hypothyroidism Musculoskelatal History: Arthritis, Fractures GI Medical History: Polyps History: Other Pyscho-Social History: Depression Reproductive Disorders: No Pertinent History Comment: R foot fx; likely 5th MT based on hx. kidney stones - Female History Hx Last Menstrual Period: No longer has them Are you now?: No - Past Surgical History Past Surgical History: Yes Neuro Surgical History: No Pertinent History Cardiac History: No Pertinent History, Other Respiratory Surgery: No Pertinent History GI Surgical History: No Pertinent History Genitourinary Surgical Hx: No Pertinent History Musculskeletal Surgical Hx: No Pertinent History Female Surgical History: Section, Tubal Ligation Other Surgical History: , kidney stones removed, tubes in ears times 2,tonsil - Social History Smoking Status: Current every day smoker How long have you smoked: 20 years Exposure to second hand smoke: No Alcohol: None Drug Use: none - Physical Exam Vital Signs: Vital Signs - 24 hr Temp Pulse Resp BP Pulse Ox 11/28/22 00:49 98.1 F 83 18 133/78 90 L 11/28/22 00:00 80 16 133/78 94 L 11/27/22 22:00 80 16 133/78 95 11/27/22 21:12 99.7 F 78 18 121/52 98 11/27/22 20:00 88 18 140/84 96 11/27/22 19:58 94 L 11/27/22 19:04 97.8 F 93 H 20 177/100 98 Results - Labs Lab/Micro Results: Lab Results-Last 24 Hours 11/27/22 11/27/22 11/27/22 Range/Units 19:55 19:55 19:58 WBC 11.3 H (4.0-10.5) x10^3/uL RBC 4.00 L (4.1-5.4) x10^6/uL Hgb 12.8 (12.0-16.0) g/dL Hct 38.1 (35-47) % MCV 95.3 (78-100) fL MCH 32.0 (26-32) pg MCHC 33.6 (32-36) g/dL RDW 12.8 (11.5-14.0) % Plt Count 520 H (150-450) x10^3/uL MPV 9.8 (7.5-11.0) fL Gran % 71.1 H (36.0-66.0) % Immature Gran % (Auto) 0.5 H (0.00-0.4) % Nucleat RBC Rel Count 0.0 (0.00-0.1) % Eos # (Auto) 0.14 (0-0.5) x10^3/uL Immature Gran # (Auto) 0.06 H (0.00-0.03) x10^3u/L Absolute Lymphs (auto) 2.42 (1.0-4.6) x10^3/uL Absolute Monos (auto) 0.57 (0.0-1.3) x10^3/uL Absolute Nucleated RBC 0.00 (0.00-0.01) x10^3u/L Lymphocytes % 21.5 L (24.0-44.0) % Monocytes % 5.1 (0.0-12.0) % Eosinophils % 1.2 (0.00-5.0) % Basophils % 0.6 (0.0-0.4) % Absolute Granulocytes 8.01 H (1.4-6.9) x10^3/uL Basophils # 0.07 (0-0.4) x10^3/uL Sodium 127 L (137-145) mmol/L Potassium 2.9 L* (3.5-5.1) mmol/L Chloride 85 L (98-107) mmol/L Carbon Dioxide 36 H (22-30) mmol/L Anion Gap 9.5 (5-15) MEQ/L BUN 13 (7-17) mg/dL Creatinine 0.47 L (0.52-1.04) mg/dL Estimated GFR > 60.0 ML/MIN Glucose 475 H (74-106) mg/dL POC Glucometer (74 to 106) mg/dL Lactic Acid 2.1 H (0.4-2.0) Calcium 8.4 (8.4-10.2) mg/dL Magnesium (1.6-2.3) mg/dL Total Bilirubin 0.50 (0.2-1.3) mg/dL AST 20 (14-36) U/L ALT 25 (0-35) U/L Alkaline Phosphatase 428 H (38-126) U/L Serum Total Protein 6.3 (6.3-8.2) g/dL Albumin 3.2 L (3.5-5.0) g/dL Urine Color (Yellow) Urine Appearance (Clear) Urine pH (4.6-8.0) Ur Specific [place] (1.005-1.030) Urine Protein (Negative) Urine Glucose (UA) (Negative) mg/dL Urine Ketones (Negative) Urine Blood (Negative) Urine Nitrite (Negative) Urine Bilirubin (Negative) Urine Urobilinogen (0.2) mg/dL Ur Leukocyte Esterase (Negative) U Hyaline Cast (Auto) (0-2) /LPF Urine Microscopic RBC (0-5) /HPF Urine Microscopic WBC (0-5) /HPF Ur Epithelial Cells (None Seen) /HPF Urine Bacteria (None Seen) /HPF Urine Culture Reflexed (NO) 11/27/22 11/27/22 11/27/22 Range/Units 20:54 21:31 22:31 WBC (4.0-10.5) x10^3/uL RBC (4.1-5.4) x10^6/uL Hgb (12.0-16.0) g/dL Hct (35-47) % MCV (78-100) fL MCH (26-32) pg MCHC (32-36) g/dL RDW (11.5-14.0) % Plt Count (150-450) x10^3/uL MPV (7.5-11.0) fL Gran % (36.0-66.0) % Immature Gran % (Auto) (0.00-0.4) % Nucleat RBC Rel Count (0.00-0.1) % Eos # (Auto) (0-0.5) x10^3/uL Immature Gran # (Auto) (0.00-0.03) x10^3u/L Absolute Lymphs (auto) (1.0-4.6) x10^3/uL Absolute Monos (auto) (0.0-1.3) x10^3/uL Absolute Nucleated RBC (0.00-0.01) x10^3u/L Lymphocytes % (24.0-44.0) % Monocytes % (0.0-12.0) % Eosinophils % (0.00-5.0) % Basophils % (0.0-0.4) % Absolute Granulocytes (1.4-6.9) x10^3/uL Basophils # (0-0.4) x10^3/uL Sodium (137-145) mmol/L Potassium (3.5-5.1) mmol/L Chloride (98-107) mmol/L Carbon Dioxide (22-30) mmol/L Anion Gap (5-15) MEQ/L BUN (7-17) mg/dL Creatinine (0.52-1.04) mg/dL Estimated GFR ML/MIN Glucose (74-106) mg/dL POC Glucometer 451 H 309 H (74 to 106) mg/dL Lactic Acid (0.4-2.0) Calcium (8.4-10.2) mg/dL Magnesium (1.6-2.3) mg/dL Total Bilirubin (0.2-1.3) mg/dL AST (14-36) U/L ALT (0-35) U/L Alkaline Phosphatase (38-126) U/L Serum Total Protein (6.3-8.2) g/dL Albumin (3.5-5.0) g/dL Urine Color Yellow (Yellow) Urine Appearance Clear (Clear) Urine pH 6.0 (4.6-8.0) Ur Specific [place] 1.010 (1.005-1.030) Urine Protein 30 (Negative) Urine Glucose (UA) >=1000 A (Negative) mg/dL Urine Ketones Negative (Negative) Urine Blood Negative (Negative) Urine Nitrite Negative (Negative) Urine Bilirubin Negative (Negative) Urine Urobilinogen 0.2 (0.2) mg/dL Ur Leukocyte Esterase Trace A (Negative) U Hyaline Cast (Auto) NONE SEEN (0-2) /LPF Urine Microscopic RBC 0-2 (0-5) /HPF Urine Microscopic WBC 6-10 A (0-5) /HPF Ur Epithelial Cells None Seen (None Seen) /HPF Urine Bacteria None Seen (None Seen) /HPF Urine Culture Reflexed NO (NO) 11/27/22 11/28/22 11/28/22 Range/Units Unknown 00:45 01:16 WBC (4.0-10.5) x10^3/uL RBC (4.1-5.4) x10^6/uL Hgb (12.0-16.0) g/dL Hct (35-47) % MCV (78-100) fL MCH (26-32) pg MCHC (32-36) g/dL RDW (11.5-14.0) % Plt Count (150-450) x10^3/uL MPV (7.5-11.0) fL Gran % (36.0-66.0) % Immature Gran % (Auto) (0.00-0.4) % Nucleat RBC Rel Count (0.00-0.1) % Eos # (Auto) (0-0.5) x10^3/uL Immature Gran # (Auto) (0.00-0.03) x10^3u/L Absolute Lymphs (auto) (1.0-4.6) x10^3/uL Absolute Monos (auto) (0.0-1.3) x10^3/uL Absolute Nucleated RBC (0.00-0.01) x10^3u/L Lymphocytes % (24.0-44.0) % Monocytes % (0.0-12.0) % Eosinophils % (0.00-5.0) % Basophils % (0.0-0.4) % Absolute Granulocytes (1.4-6.9) x10^3/uL Basophils # (0-0.4) x10^3/uL Sodium (137-145) mmol/L Potassium 3.1 L (3.5-5.1) mmol/L Chloride (98-107) mmol/L Carbon Dioxide (22-30) mmol/L Anion Gap (5-15) MEQ/L BUN (7-17) mg/dL Creatinine (0.52-1.04) mg/dL Estimated GFR ML/MIN Glucose (74-106) mg/dL POC Glucometer 260 H (74 to 106) mg/dL Lactic Acid (0.4-2.0) Calcium (8.4-10.2) mg/dL Magnesium 1.8 (1.6-2.3) mg/dL Total Bilirubin (0.2-1.3) mg/dL AST (14-36) U/L ALT (0-35) U/L Alkaline Phosphatase (38-126) U/L Serum Total Protein (6.3-8.2) g/dL Albumin (3.5-5.0) g/dL Urine Color (Yellow) Urine Appearance (Clear) Urine pH (4.6-8.0) Ur Specific [place] (1.005-1.030) Urine Protein (Negative) Urine Glucose (UA) (Negative) mg/dL Urine Ketones (Negative) Urine Blood (Negative) Urine Nitrite (Negative) Urine Bilirubin (Negative) Urine Urobilinogen (0.2) mg/dL Ur Leukocyte Esterase (Negative) U Hyaline Cast (Auto) (0-2) /LPF Urine Microscopic RBC (0-5) /HPF Urine Microscopic WBC (0-5) /HPF Ur Epithelial Cells (None Seen) /HPF Urine Bacteria (None Seen) /HPF Urine Culture Reflexed (NO) - Radiology Impressions Radiology Exams & Impressions: Radiology Procedures Category Date Time Status ECHO W/2D AND DOPPLER [US] Routine Exams 11/28/22 02:25 Ordered VENOUS BILATERAL EXTREMITY [US] Stat Exams 11/27/22 21:21 Completed Assessment/Plan (1) Hyperglycemia Current Visit: Yes Status: Acute Assessment & Plan: PHYSICAL EXAM GEN: Alert and oriented, NAD Eyes: PERRL ENT: + Thrush CV: S1S2 Pulm; Clear on RA Abd: Soft/nt/nd Extrem: 2+ pitting edema Skin: Dry and intact Neuro: No foal deficits Psych: Calm and cooperative ASSESSMENT #Uncontrolled diabetes A1c greater than 14 #Pseudohyponatremia #UTI #Hypokalemia #Lower extremity edema #Thrush #Chronic Pain PLAN -Resume Lantus and SSI -Potassium repletion -Echo -Follow electrolytes -Nystatin s/s -Echo -Check TSH Prophylaxis: Lovenox Entire encounter performed via telemedicine Code(s): R73.9 - HYPERGLYCEMIA, UNSPECIFIED Telemedicine Encounter - Telemedicine Encounter Telemedicine Encounter: The entirety of this encounter was performed via Telemedicine"
[2022-11-28] MEDS ORDERED: NEURONTIN PO SCH (02:38)
[2022-11-28] MEDS: Nystatin SUSPENSION 60 ML PO SCH ×3 (02:55→13:29)
[2022-11-28] MEDS: Cyclobenzaprine 10 MG PO SCH ×2 (02:55→09:15)
[2022-11-28] MEDS: NORCO 7.5/325 MG TAB PO SCH ×2 (02:56→09:15)
[2022-11-28] MEDS ORDERED: HUMALOG ONE (04:13)
[2022-11-28] MEDS: HUMULIN R SQ PRN ×3 (04:25→11:40)
[2022-11-28 05:13] LABS: Absolute Neutrophil Ct (ANC) 6.95 x10^3/uL (1.4-6.9); BASOPHIL % 0.5 % (0.0-0.4); Basophil (Absolute #) 0.06 x10^3/uL (0-0.4); Eosinophil % 1.3 % (0.00-5.0); Eosinophil (Absolute #) 0.15 x10^3/uL (0-0.5); Hematocrit 35.2 % (35-47); Hemoglobin 11.6 g/dL (12.0-16.0); IMMATURE GRAN # 0.07 x10^3u/L (0.00-0.03); IMMATURE GRAN % 0.6 % (0.00-0.4); Lymphocyte (Absolute #) 3.35 x10^3/uL (1.0-4.6); Lymphocytes % 29.9 % (24.0-44.0); Mean Cell Volume 95.4 fL (78-100); Mean Corpuscular Hemoglobin 31.4 pg (26-32); Mean Platelet Volume 9.5 fL (7.5-11.0); Monocyte (Absolute #) 0.63 x10^3/uL (0.0-1.3); Monocytes % 5.6 % (0.0-12.0); Neutrophil % 62.1 % (36.0-66.0); Platelet Count 474 x10^3/uL (150-450); Red Blood Count 3.69 x10^6/uL (4.1-5.4); White Blood Count 11.2 x10^3/uL (4.0-10.5)
[2022-11-28 05:39] LABS: ALBUMIN 2.7 g/dL (3.5-5.0); ALKALINE PHOSPHATASE 328 U/L (38-126); ANION GAP 4.5 MEQ/L (5-15); BLOOD UREA NITROGEN 9 mg/dL (7-17); CHLORIDE 94 mmol/L (98-107); Carbon Dioxide 37 mmol/L (22-30); Creatinine 1 0.41 mg/dL (0.52-1.04); EST GLOMERULAR FILTRATION RATE > 60.0 ML/MIN; Glucose 273 mg/dL (74-106); MAGNESIUM 1.8 mg/dL (1.6-2.3); NT PRO BNPII 177 pg/mL (<300); Potassium 3.1 mmol/L (3.5-5.1); SGOT/AST 19 U/L (14-36); SGPT/ALT 20 U/L (0-35); SODIUM 133 mmol/L (137-145); Total Protein 5.3 g/dL (6.3-8.2)
[2022-11-28] MEDS: Neurontin PO SCH ×2 (09:14→14:56)
[2022-11-28] MEDS ORDERED: ROCEPHIN 1 Gm-D5w 50 ml Bag** 1 G/50 ML IVPB IV SCH (10:00)
[2022-11-28] MEDS ORDERED: ENOXAPARIN SODIUM SQ SCH (10:00)
[2022-11-28 11:38] VITALS: BP 136/80; PULSE 88; O2SAT 96
[2022-11-28] MEDS ORDERED: ZOCOR 20MG PO SCH (16:00)
[2022-11-28] MEDS ORDERED: Wellbutrin XL 150 MG PO SCH (16:00)
[2022-11-28] MEDS ORDERED: Zestril 20 MG PO SCH (16:00)
[2022-11-28] MEDS ORDERED: ELAVIL 10 MG PO SCH (16:00)
[2022-11-28] MEDS ORDERED: JARDIANCE PO SCH (16:00)
[2022-11-28] MEDS ORDERED: Lasix 40 MG PO SCH (16:00)
[2022-11-28] MEDS ORDERED: SYNTHROID 88 MCG PO SCH (16:00)
[2022-11-28] MEDS ORDERED: HUMALOG SQ SCH (16:30)
[2022-11-28] MEDS ORDERED: Coreg 3.125 MG PO SCH (22:00)
[2022-11-28] MEDS ORDERED: Lantus Insulin SQ SCH (22:00)
== END 2022-11-28 16:13 | disposition home or self-care (01) ==
LOC: ED 18:53 → MED SURG 11-28 00:33
PROVIDERS: ADMIT Internal Medicine; ATTEND Family Medicine
DX: E11.65 Type 2 diabetes mellitus with hyperglycemia (principal); E87.6 Hypokalemia; E87.1 Hypo-osmolality and hyponatremia; E03.9 Hypothyroidism, unspecified; E78.5 Hyperlipidemia, unspecified; I10 Essential (primary) hypertension; K21.9 Gastro-esophageal reflux disease without esophagitis; N39.0 Urinary tract infection, site not specified; R60.0 Localized edema; B37.9 Candidiasis, unspecified; Z79.899 Other long term (current) drug therapy; Z20.828 Contact with and (suspected) exposure to other viral communicable diseases; Z72.0 Tobacco use
CPT/HCPCS: 36000; 36415; 80053; 81001; 82947; 83605; 83735; 83880; 84132; 84443; 85025; 93041; 93970; 94760; 96360; 96365; 96372; 96374; 96375; 99285; G0378; Q3014; J0696; J1650; J1815; J1817; J2405; J3480; A9270-GY

== ENCOUNTER 2023-03-01 13:59 | Emergency (ER) | payer OTHER ==
[2023-03-01 14:24] VITALS: TEMP 97.6
[2023-03-01] MEDS ORDERED: Zofran 4 MG/2 ML VIAL IV ONE (14:26)
[2023-03-01] MEDS ORDERED: Sodium Chloride 0.9% 1000 ML 1,000 ML IV STA (14:26)
[2023-03-01] MEDS ORDERED: TORAdol 30 mg Injection IV ONE (14:26)
--- NOTE | 2023-03-01 14:26 | ERPHSYRPT ---
- History of Present Illness Time Seen by Provider: 03/01/23 14:18 Historian: patient Exam Limitations: no limitations Patient Subjective Stated Complaint: RIGHT LOWER ABD AND FLANK PAIN FOR 10 DAYS NOW, VOMITING STOPPED YESTERDAY, NO FEVER. COVID TEST NEGATIVE, PT STATES SHE IS DRIBBLING WITH URINATION, BS HAVE BEEN OVER 400 Triage Nursing Assessment: PT ALERT, ARRIVED PER WC, UNABLE TO GET OUT OF CHAIR WIHOUT ASSISTANCE, CRYING AT TIMES, SKIN WARM AND DRY, SWELLING TO LOWER LEGS. ABD SOFT Physician History: For the past 10 days pt has had fever up to 101 degrees, sharp right flank/RLQ abdominal pain, vomiting without blood, diaphoresis, chills and shortness of air on exertion. Last BM was 3 days agoi & wnl. Pt also states she has had a sore throat for the past few days. Allergies/Adverse Reactions: erythromycin base Adverse Reaction (Verified 03/01/23 14:25) Itching PT STATES ITCHING/SWELLING Home Medications: Gabapentin [Neurontin] 1,200 mg PO TID 05/10/14 [History] Levothyroxine Sodium 88 Mcg [Synthroid 88 Mcg] 88 mcg PO DAILY 05/10/14 [History] lisinopriL [Lisinopril] 40 mg PO DAILY 05/10/14 [History] Carvedilol 3.125 mg [Coreg 3.125 MG] 3.125 mg PO BID 06/20/15 [History] Bupropion HCl Xl 150 mg [Wellbutrin XL 150 MG] 150 mg PO DAILY 11/28/22 [History] Cyclobenzaprine HCl 10 mg [Cyclobenzaprine 10 MG] 10 mg PO BID 11/28/22 [History] Empagliflozin [Jardiance] 10 mg PO DAILY 11/28/22 [History] Furosemide 40 mg [Lasix 40 MG] 40 mg PO DAILY 11/28/22 [History] Hydrocodone/Acetaminophen [Hydrocodone-Acetamin 7.5-325] 1 each PO BID 11/28/22 [History] Insulin Glargine,Hum.rec.anlog [Basaglar Kwikpen U-100] 20 unit SQ HS 11/28/22 [History] Insulin Lispro [Admelog] 15 unit SQ AC 11/28/22 [History] Atorvastatin Calcium [Lipitor] 10 mg PO DAILY 03/01/23 [History] Pantoprazole 20 mg [Protonix 20MG Tablet] 20 mg PO DAILY 03/01/23 [History] Semaglutide [Ozempic] 0.25 mg SQ UD 03/01/23 [History] Hx Tetanus, Diphtheria Vaccination/Date Given: Yes Hx Influenza Vaccination/Date Given: No Hx Pneumococcal Vaccination/Date Given: No Immunizations Up to Date: Yes Travel Risk - International Travel Have you traveled outside of the country in past 3 weeks: No - Coronavirus Screening Are you exhibiting any of the following symptoms?: Yes Symptoms: Fever, Vomiting/Diarrhea - Vaccine Status Have you recieved a Covid-19 vaccination: Yes [employer] Facilitator: Moderna - Vaccination Dates Date of 2cond Vaccination (if applicable): ? - Review of Systems Constitutional: Fever, Chills Ears, Nose, & Throat: Throat Pain Respiratory: Dyspnea on Exertion (LOVE) Cardiac: No Chest Pain Abdominal/Gastrointestinal: Abdominal Pain, Nausea, Vomiting, No Diarrhea Neurological: No Headache - Past Medical History Pertinent Past Medical History: Yes Neurological History: Peripheral Neuropathy ENT History: No Pertinent History Cardiac History: High Cholesterol, Hypertension Respiratory History: Asthma Endocrine Medical History: Diabetes Type II, Hypothyroidism Musculoskeletal History: Arthritis, Fractures GI Medical History: Polyps History: Other Psycho-Social History: Depression Female Reproductive Disorders: No Pertinent History Other Medical History: R foot fx; likely 5th MT based on hx. kidney stones - Past Surgical History Past Surgical History: Yes Neuro Surgical History: No Pertinent History Cardiac: No Pertinent History, Other Respiratory: No Pertinent History Gastrointestinal: No Pertinent History Genitourinary: No Pertinent History Musculoskeletal: No Pertinent History Female Surgical History: Section, Tubal Ligation Other Surgical History: , kidney stones removed, tubes in ears times 2,tonsil - Social History Smoking Status: Current every day smoker How long have you smoked: 20 years Exposure to second hand smoke: No Drug Use: none Patient Lives Alone: No - Female History Hx Last Menstrual Period: 2014 Hx Now: No - Nursing Vital Signs Nursing Vital Signs: Initial Vital Signs Temperature 97.6 F 03/01/23 14:13 Pulse Rate 100 H 03/01/23 14:13 Respiratory Rate 18 03/01/23 14:13 Blood Pressure 151/126 03/01/23 14:13 O2 Sat by Pulse Oximetry 99 03/01/23 14:13 Pain Scale Pain Intensity 7 - Physical Exam General Appearance: alert Eye Exam: eyes nml inspection Ears, Nose, Throat Exam: TMs normal, pharyngeal erythema Neck Exam: normal inspection Respiratory Exam: normal breath sounds Cardiovascular Exam: normal heart sounds Gastrointestinal/Abdomen Exam: soft, normal bowel sounds, tenderness (mild - right lower flank) Back Exam: normal inspection Extremity Exam: swelling (bilateral +1 ankle/lower leg edema) Neurologic Exam: alert, cooperative Skin Exam: other (decubitus ulcer on right 2nd toe) SpO2 Interpretation: normal SpO2: 99 O2 Delivery: Room Air - Course Nursing assessment & vital signs reviewed: Yes EKG Interpreted by Me: RATE (92), Sinus Rhythm, NORMAL AXIS, ST Elev (Minimal ST elevation V1 & V2) - CT Exams Chest CT Interpretation: Discussed w/radiologist (Normal CT Chest PE exam.) Abdomen/Pelvis CT Interpretation: Discussed w/radiologist (Diffusely edematous and prominent right kidney with patchy enhancement and perinephric stranding favoring nephritis. Tiny reactive perinephric fluid.) Ordered Tests: Active Orders 24 hr Category Date Time Status Tank Car Repairer STAT Care 03/01/23 16:05 Active EKG-ER Only STAT Care 03/01/23 14:26 Active IV Insertion STAT Care 03/01/23 14:26 Active POCT Glucose Check STAT Care 03/01/23 14:26 Active cath [Cath for Specimen-Straight] STAT Care 03/01/23 16:19 Active ABDOMEN AND PELVIS W&WO CONTRA [CT] Stat Exams 03/01/23 14:27 Completed CHEST WITH CONTRAST [CT] Stat Exams 03/01/23 14:29 Completed AMYLASE Stat Lab 03/01/23 14:20 Completed BLOOD CULTURE Stat Lab 03/01/23 15:20 Received CBC W DIFF Stat Lab 03/01/23 14:20 Results CMP Stat Lab 03/01/23 14:20 Completed CULTURE,URINE Stat Lab 03/01/23 16:20 Received HCG QUALITATIVE, SERUM Stat Lab 03/01/23 14:20 Completed LIPASE Stat Lab 03/01/23 14:20 Completed Lactic Acid Stat Lab 03/01/23 14:54 Completed MAGNESIUM Stat Lab 03/01/23 14:20 Completed MONO SCREEN Stat Lab 03/01/23 14:20 Completed Manual Differential NC Stat Lab 03/01/23 14:20 Results POCT GLUCOSE Stat Lab 03/01/23 14:24 Completed POCT GLUCOSE Stat Lab 03/01/23 14:24 Completed Pathologist Review Stat Lab 03/01/23 14:20 Results TROPONIN Q4H Lab 03/01/23 14:20 Completed TROPONIN Q4H Lab 03/01/23 18:30 Ordered TROPONIN Q4H Lab 03/01/23 22:30 Ordered UA W/RFX UR CULTURE Stat Lab 03/01/23 14:31 Completed VENOUS BLOOD GAS Stat Lab 03/01/23 14:54 Completed Medication Summary Generic Name Dose Route Start Last Admin Trade Name Freq PRN Reason Stop Dose Admin Potassium Chloride/Sodium Chloride 1,000 mls @ 500 mls/hr 03/01/23 15:45 03/01/23 15:46 Sodium Chloride 0.9% W/ 20 Meq Kcl/Liter IV 03/31/23 15:44 500 mls/hr .Q2H AMARA Administration Discontinued Medications Generic Name Dose Route Start Last Admin Trade Name Freq PRN Reason Stop Dose Admin Aspirin 324 mg 03/01/23 16:06 03/01/23 16:09 Aspirin 81 Mg Tab.Chew PO 03/01/23 16:07 324 mg STAT ONE Administration Aspirin Confirm 03/01/23 16:08 Aspirin 81 Mg Tab.Chew Administered 03/01/23 16:09 Dose 324 mg .ROUTE .STK-MED ONE Sodium Chloride 1,000 mls @ 999 mls/hr 03/01/23 14:26 03/01/23 15:40 Sodium Chloride 0.9% 1000 Ml IV 03/01/23 15:26 Infused .Q1H1M STA Infusion Sodium Chloride Confirm 03/01/23 14:34 Sodium Chloride 0.9% 1000 Ml Administered 03/01/23 14:35 Dose 1,000 mls @ ud .ROUTE .STK-MED ONE Ceftriaxone Sodium/Dextrose 1 g in 50 mls @ 100 mls/hr 03/01/23 16:11 03/01/23 16:28 Rocephin 1 Gm-D5w 50 Ml Bag IV 03/01/23 16:40 100 ml/hr STAT STA 100 mls/hr Administration Ceftriaxone Sodium/Dextrose Confirm 03/01/23 16:26 Rocephin 1 Gm-D5w 50 Ml Bag Administered 03/01/23 16:27 Dose 1 g in 50 mls @ ud IV .STK-MED ONE Ketorolac Tromethamine 30 mg 03/01/23 14:26 03/01/23 14:40 Ketorolac Tromethamine 30 Mg/Ml Inj IV 03/01/23 14:27 30 mg STAT ONE Administration Ketorolac Tromethamine Confirm 03/01/23 14:33 Ketorolac Tromethamine 30 Mg/Ml Inj Administered 03/01/23 14:34 Dose 30 mg .ROUTE .STK-MED ONE Morphine Sulfate 2 mg 03/01/23 16:06 03/01/23 16:09 Morphine Sulfate 2 Mg/Ml Inj IV 03/01/23 16:07 2 mg STAT ONE Administration Morphine Sulfate Confirm 03/01/23 16:08 Morphine Sulfate 2 Mg/Ml Inj Administered 03/01/23 16:09 Dose 2 mg .ROUTE .STK-MED ONE Ondansetron HCl 4 mg 03/01/23 14:26 03/01/23 14:39 Ondansetron Hcl 4 Mg/2 Ml Vial IV 03/01/23 14:27 4 mg STAT ONE Administration Ondansetron HCl Confirm 03/01/23 14:33 Ondansetron Hcl 4 Mg/2 Ml Vial Administered 03/01/23 14:34 Dose 4 mg .ROUTE .STK-MED ONE Lab/Rad Data: Laboratory Result Diagrams 03/01/23 14:20 03/01/23 14:20 Laboratory Results 03/01/23 03/01/23 03/01/23 Range/Units 15:00 15:00 14:54 WBC (4.0-10.5) x10^3/uL RBC (4.1-5.4) x10^6/uL Hgb (12.0-16.0) g/dL Hct (35-47) % MCV (78-100) fL MCH (26-32) pg MCHC (32-36) g/dL RDW (11.5-14.0) % Plt Count (150-450) x10^3/uL MPV (7.5-11.0) fL Segmented Neutrophils (36.0-66.0) % Band Neutrophils (0.0-2.0) % Lymphocytes (Manual) (24-44) % Metamyelocytes % Smear Path Review pO2/FiO2 Ratio 21.0 % VBG pH 7.41 (7.32-7.42) VBG pCO2 at Pat Temp 48 (42-55) mm/Hg VBG pO2 at Pat Temp 32 (25-40) mm/Hg VBG HCO3 30.4 H* (22-28) meq/L VBG O2 Sat (Melly) 57.0 L (95-100) VBG Base Excess 4.7 H (-2.0-2.0) VBG Hemoglobin 14.7 VBG Carboxyhemoglobin 8.3 H* (0.0-6.9) % T HGB POC Potassium 3.2 L (3.5-5.1) Sodium (137-145) mmol/L Potassium (3.5-5.1) mmol/L Chloride (98-107) mmol/L Carbon Dioxide (22-30) mmol/L Anion Gap (5-15) MEQ/L BUN (7-17) mg/dL Creatinine (0.52-1.04) mg/dL Estimated GFR ML/MIN Glucose (74-106) mg/dL POC Glucometer (74 to 106) mg/dL Lactic Acid (0.4-2.0) Calcium (8.4-10.2) mg/dL Magnesium (1.6-2.3) mg/dL Total Bilirubin (0.2-1.3) mg/dL AST (14-36) U/L ALT (0-35) U/L Alkaline Phosphatase (38-126) U/L Troponin I (0.000-0.034) ng/mL Serum Total Protein (6.3-8.2) g/dL Albumin (3.5-5.0) g/dL Amylase (30-110) U/L Lipase (23-300) U/L Serum HCG, Qual (NEGATIVE) Urine Color (Yellow) Urine Appearance (Clear) Urine pH (4.6-8.0) Ur Specific [place] (1.005-1.030) Urine Protein (Negative) Urine Glucose (UA) (Negative) mg/dL Urine Ketones (Negative) Urine Blood (Negative) Urine Nitrite (Negative) Urine Bilirubin (Negative) Urine Urobilinogen (0.2) mg/dL Ur Leukocyte Esterase (Negative) U Hyaline Cast (Auto) (0-2) /LPF Urine Microscopic RBC (0-5) /HPF Urine Microscopic WBC (0-5) /HPF Ur Epithelial Cells (None Seen) /HPF Urine Bacteria (None Seen) /HPF Urine Culture Reflexed (NO) Monoscreen (NEGATIVE) Influenza Type A Ag NEGATIVE (NEGATIVE) Influenza Type B Ag NEGATIVE (NEGATIVE) RSV (PCR) NEGATIVE (NEGATIVE) SARS-CoV-2 (PCR) NEGATIVE (NEGATIVE) Group A Strep Antibody NOT DETECTED (NEGATIVE) 03/01/23 03/01/23 03/01/23 Range/Units 14:54 14:31 14:24 WBC (4.0-10.5) x10^3/uL RBC (4.1-5.4) x10^6/uL Hgb (12.0-16.0) g/dL Hct (35-47) % MCV (78-100) fL MCH (26-32) pg MCHC (32-36) g/dL RDW (11.5-14.0) % Plt Count (150-450) x10^3/uL MPV (7.5-11.0) fL Segmented Neutrophils (36.0-66.0) % Band Neutrophils (0.0-2.0) % Lymphocytes (Manual) (24-44) % Metamyelocytes % Smear Path Review pO2/FiO2 Ratio % VBG pH (7.32-7.42) VBG pCO2 at Pat Temp (42-55) mm/Hg VBG pO2 at Pat Temp (25-40) mm/Hg VBG HCO3 (22-28) meq/L VBG O2 Sat (Melly) (95-100) VBG Base Excess (-2.0-2.0) VBG Hemoglobin VBG Carboxyhemoglobin (0.0-6.9) % T HGB POC Potassium (3.5-5.1) Sodium (137-145) mmol/L Potassium (3.5-5.1) mmol/L Chloride (98-107) mmol/L Carbon Dioxide (22-30) mmol/L Anion Gap (5-15) MEQ/L BUN (7-17) mg/dL Creatinine (0.52-1.04) mg/dL Estimated GFR ML/MIN Glucose (74-106) mg/dL POC Glucometer 267 H (74 to 106) mg/dL Lactic Acid 1.7 (0.4-2.0) Calcium (8.4-10.2) mg/dL Magnesium (1.6-2.3) mg/dL Total Bilirubin (0.2-1.3) mg/dL AST (14-36) U/L ALT (0-35) U/L Alkaline Phosphatase (38-126) U/L Troponin I (0.000-0.034) ng/mL Serum Total Protein (6.3-8.2) g/dL Albumin (3.5-5.0) g/dL Amylase (30-110) U/L Lipase (23-300) U/L Serum HCG, Qual (NEGATIVE) Urine Color Dark Yellow A (Yellow) Urine Appearance Turbid A (Clear) Urine pH 5.5 (4.6-8.0) Ur Specific [place] 1.020 (1.005-1.030) Urine Protein 100 A (Negative) Urine Glucose (UA) 250 A (Negative) mg/dL Urine Ketones Trace A (Negative) Urine Blood Large A (Negative) Urine Nitrite Negative (Negative) Urine Bilirubin Negative (Negative) Urine Urobilinogen 1.0 A (0.2) mg/dL Ur Leukocyte Esterase Large A (Negative) U Hyaline Cast (Auto) 20-50 (0-2) /LPF Urine Microscopic RBC 21-50 A (0-5) /HPF Urine Microscopic WBC >100 A (0-5) /HPF Ur Epithelial Cells Many A (None Seen) /HPF Urine Bacteria Moderate A (None Seen) /HPF Urine Culture Reflexed ORDERED SEPARATELY (NO) Monoscreen (NEGATIVE) Influenza Type A Ag (NEGATIVE) Influenza Type B Ag (NEGATIVE) RSV (PCR) (NEGATIVE) SARS-CoV-2 (PCR) (NEGATIVE) Group A Strep Antibody (NEGATIVE) 03/01/23 03/01/23 03/01/23 Range/Units 14:24 14:20 14:20 WBC (4.0-10.5) x10^3/uL RBC (4.1-5.4) x10^6/uL Hgb (12.0-16.0) g/dL Hct (35-47) % MCV (78-100) fL MCH (26-32) pg MCHC (32-36) g/dL RDW (11.5-14.0) % Plt Count (150-450) x10^3/uL MPV (7.5-11.0) fL Segmented Neutrophils (36.0-66.0) % Band Neutrophils (0.0-2.0) % Lymphocytes (Manual) (24-44) % Metamyelocytes % Smear Path Review pO2/FiO2 Ratio % VBG pH (7.32-7.42) VBG pCO2 at Pat Temp (42-55) mm/Hg VBG pO2 at Pat Temp (25-40) mm/Hg VBG HCO3 (22-28) meq/L VBG O2 Sat (Melly) (95-100) VBG Base Excess (-2.0-2.0) VBG Hemoglobin VBG Carboxyhemoglobin (0.0-6.9) % T HGB POC Potassium (3.5-5.1) Sodium (137-145) mmol/L Potassium (3.5-5.1) mmol/L Chloride (98-107) mmol/L Carbon Dioxide (22-30) mmol/L Anion Gap (5-15) MEQ/L BUN (7-17) mg/dL Creatinine (0.52-1.04) mg/dL Estimated GFR ML/MIN Glucose (74-106) mg/dL POC Glucometer 267 H (74 to 106) mg/dL Lactic Acid (0.4-2.0) Calcium (8.4-10.2) mg/dL Magnesium 2.2 (1.6-2.3) mg/dL Total Bilirubin (0.2-1.3) mg/dL AST (14-36) U/L ALT (0-35) U/L Alkaline Phosphatase (38-126) U/L Troponin I (0.000-0.034) ng/mL Serum Total Protein (6.3-8.2) g/dL Albumin (3.5-5.0) g/dL Amylase (30-110) U/L Lipase (23-300) U/L Serum HCG, Qual NEGATIVE (NEGATIVE) Urine Color (Yellow) Urine Appearance (Clear) Urine pH (4.6-8.0) Ur Specific [place] (1.005-1.030) Urine Protein (Negative) Urine Glucose (UA) (Negative) mg/dL Urine Ketones (Negative) Urine Blood (Negative) Urine Nitrite (Negative) Urine Bilirubin (Negative) Urine Urobilinogen (0.2) mg/dL Ur Leukocyte Esterase (Negative) U Hyaline Cast (Auto) (0-2) /LPF Urine Microscopic RBC (0-5) /HPF Urine Microscopic WBC (0-5) /HPF Ur Epithelial Cells (None Seen) /HPF Urine Bacteria (None Seen) /HPF Urine Culture Reflexed (NO) Monoscreen (NEGATIVE) Influenza Type A Ag (NEGATIVE) Influenza Type B Ag (NEGATIVE) RSV (PCR) (NEGATIVE) SARS-CoV-2 (PCR) (NEGATIVE) Group A Strep Antibody (NEGATIVE) 03/01/23 03/01/23 03/01/23 Range/Units 14:20 14:20 14:20 WBC (4.0-10.5) x10^3/uL RBC (4.1-5.4) x10^6/uL Hgb (12.0-16.0) g/dL Hct (35-47) % MCV (78-100) fL MCH (26-32) pg MCHC (32-36) g/dL RDW (11.5-14.0) % Plt Count (150-450) x10^3/uL MPV (7.5-11.0) fL Segmented Neutrophils (36.0-66.0) % Band Neutrophils (0.0-2.0) % Lymphocytes (Manual) (24-44) % Metamyelocytes % Smear Path Review pO2/FiO2 Ratio % VBG pH (7.32-7.42) VBG pCO2 at Pat Temp (42-55) mm/Hg VBG pO2 at Pat Temp (25-40) mm/Hg VBG HCO3 (22-28) meq/L VBG O2 Sat (Melly) (95-100) VBG Base Excess (-2.0-2.0) VBG Hemoglobin VBG Carboxyhemoglobin (0.0-6.9) % T HGB POC Potassium (3.5-5.1) Sodium 135 L (137-145) mmol/L Potassium 3.2 L (3.5-5.1) mmol/L Chloride 96 L (98-107) mmol/L Carbon Dioxide 29 (22-30) mmol/L Anion Gap 13.3 (5-15) MEQ/L BUN 35 H (7-17) mg/dL Creatinine 0.84 (0.52-1.04) mg/dL Estimated GFR > 60.0 ML/MIN Glucose 251 H (74-106) mg/dL POC Glucometer (74 to 106) mg/dL Lactic Acid (0.4-2.0) Calcium 8.3 L (8.4-10.2) mg/dL Magnesium (1.6-2.3) mg/dL Total Bilirubin 0.70 (0.2-1.3) mg/dL AST 32 (14-36) U/L ALT 21 (0-35) U/L Alkaline Phosphatase 470 H (38-126) U/L Troponin I 1.380 H* (0.000-0.034) ng/mL Serum Total Protein 6.3 (6.3-8.2) g/dL Albumin 2.8 L (3.5-5.0) g/dL Amylase 46 (30-110) U/L Lipase 40 (23-300) U/L Serum HCG, Qual (NEGATIVE) Urine Color (Yellow) Urine Appearance (Clear) Urine pH (4.6-8.0) Ur Specific [place] (1.005-1.030) Urine Protein (Negative) Urine Glucose (UA) (Negative) mg/dL Urine Ketones (Negative) Urine Blood (Negative) Urine Nitrite (Negative) Urine Bilirubin (Negative) Urine Urobilinogen (0.2) mg/dL Ur Leukocyte Esterase (Negative) U Hyaline Cast (Auto) (0-2) /LPF Urine Microscopic RBC (0-5) /HPF Urine Microscopic WBC (0-5) /HPF Ur Epithelial Cells (None Seen) /HPF Urine Bacteria (None Seen) /HPF Urine Culture Reflexed (NO) Monoscreen NEGATIVE (NEGATIVE) Influenza Type A Ag (NEGATIVE) Influenza Type B Ag (NEGATIVE) RSV (PCR) (NEGATIVE) SARS-CoV-2 (PCR) (NEGATIVE) Group A Strep Antibody (NEGATIVE) 03/01/23 Range/Units 14:20 WBC 40.1 H* (4.0-10.5) x10^3/uL RBC 4.77 (4.1-5.4) x10^6/uL Hgb 14.5 (12.0-16.0) g/dL Hct 43.3 (35-47) % MCV 90.8 (78-100) fL MCH 30.4 (26-32) pg MCHC 33.5 (32-36) g/dL RDW 13.8 (11.5-14.0) % Plt Count 436 (150-450) x10^3/uL MPV 10.0 (7.5-11.0) fL Segmented Neutrophils 94 H (36.0-66.0) % Band Neutrophils 3 H (0.0-2.0) % Lymphocytes (Manual) 2 L (24-44) % Metamyelocytes 1 % Smear Path Review Pending pO2/FiO2 Ratio % VBG pH (7.32-7.42) VBG pCO2 at Pat Temp (42-55) mm/Hg VBG pO2 at Pat Temp (25-40) mm/Hg VBG HCO3 (22-28) meq/L VBG O2 Sat (Melly) (95-100) VBG Base Excess (-2.0-2.0) VBG Hemoglobin VBG Carboxyhemoglobin (0.0-6.9) % T HGB POC Potassium (3.5-5.1) Sodium (137-145) mmol/L Potassium (3.5-5.1) mmol/L Chloride (98-107) mmol/L Carbon Dioxide (22-30) mmol/L Anion Gap (5-15) MEQ/L BUN (7-17) mg/dL Creatinine (0.52-1.04) mg/dL Estimated GFR ML/MIN Glucose (74-106) mg/dL POC Glucometer (74 to 106) mg/dL Lactic Acid (0.4-2.0) Calcium (8.4-10.2) mg/dL Magnesium (1.6-2.3) mg/dL Total Bilirubin (0.2-1.3) mg/dL AST (14-36) U/L ALT (0-35) U/L Alkaline Phosphatase (38-126) U/L Troponin I (0.000-0.034) ng/mL Serum Total Protein (6.3-8.2) g/dL Albumin (3.5-5.0) g/dL Amylase (30-110) U/L Lipase (23-300) U/L Serum HCG, Qual (NEGATIVE) Urine Color (Yellow) Urine Appearance (Clear) Urine pH (4.6-8.0) Ur Specific [place] (1.005-1.030) Urine Protein (Negative) Urine Glucose (UA) (Negative) mg/dL Urine Ketones (Negative) Urine Blood (Negative) Urine Nitrite (Negative) Urine Bilirubin (Negative) Urine Urobilinogen (0.2) mg/dL Ur Leukocyte Esterase (Negative) U Hyaline Cast (Auto) (0-2) /LPF Urine Microscopic RBC (0-5) /HPF Urine Microscopic WBC (0-5) /HPF Ur Epithelial Cells (None Seen) /HPF Urine Bacteria (None Seen) /HPF Urine Culture Reflexed (NO) Monoscreen (NEGATIVE) Influenza Type A Ag (NEGATIVE) Influenza Type B Ag (NEGATIVE) RSV (PCR) (NEGATIVE) SARS-CoV-2 (PCR) (NEGATIVE) Group A Strep Antibody (NEGATIVE) - Progress Progress: unchanged Discussed with Dr.: Other (Spoke with Dr. Reed([id number])(Assistant Front Office Manager); Spoke with Dr. Espino([id number]) who accepted pt for transfer to [facility] as a direct admission.) Counseled pt/family regarding: lab results, diagnosis, rad results Medical Desision Making - Discussion of managment Reviewed:: Test results - Diagnostic Testing Diagnostic test were ordered, analyzed, and reviewed by me: Yes Radiological Interpretation: Discussed w/ radiologist - Departure Departure Disposition: Transfer ([facility]) Clinical Impression: Elevated troponin, Leukocytosis, UTI (urinary tract infection), Pyelonephritis Condition: Stable Critical Care Time: No Referrals: JAVIER FLETCHER [Primary Care Provider] - Follow up/PCP as directed
[2023-03-01] MEDS ORDERED: Zofran 4 MG/2 ML VIAL ONE (14:33)
[2023-03-01] MEDS ORDERED: TORAdol 30 mg Injection ONE (14:33)
[2023-03-01] MEDS ORDERED: Sodium Chloride 0.9% 1000 ML 1,000 ML ONE (14:34)
[2023-03-01 14:56] LABS: Hematocrit 43.3 % (35-47); Hemoglobin 14.5 g/dL (12.0-16.0); Mean Cell Volume 90.8 fL (78-100); Mean Corpuscular Hemoglobin 30.4 pg (26-32); Mean Corpuscular Hgb Concent. 33.5 g/dL (32-36); Platelet Count 436 x10^3/uL (150-450); Red Blood Count 4.77 x10^6/uL (4.1-5.4); Red Cell Distribution Width 13.8 % (11.5-14.0)
[2023-03-01 14:58] LABS: VBG BASE EXCESS 4.7 (-2.0-2.0); VBG HCO3- 30.4 meq/L (22-28); VBG HEMOGLOBIN 14.7; VBG POTASSIUM 3.2 (3.5-5.1); VBG pH 7.41 (7.32-7.42)
[2023-03-01 14:59] LABS: VBG CARBOXYHEMOGLOBIN 8.3 % T HGB (0.0-6.9)
[2023-03-01 15:07] LABS: White Blood Count 40.1 x10^3/uL (4.0-10.5)
[2023-03-01 15:14] LABS: ALBUMIN 2.8 g/dL (3.5-5.0); ALKALINE PHOSPHATASE 470 U/L (38-126); AMYLASE 46 U/L (30-110); ANION GAP 13.3 MEQ/L (5-15); BLOOD UREA NITROGEN 35 mg/dL (7-17); CHLORIDE 96 mmol/L (98-107); Calcium 8.3 mg/dL (8.4-10.2); Carbon Dioxide 29 mmol/L (22-30); Creatinine 1 0.84 mg/dL (0.52-1.04); EST GLOMERULAR FILTRATION RATE > 60.0 ML/MIN; Glucose 251 mg/dL (74-106); LIPASE 40 U/L (23-300); Potassium 3.2 mmol/L (3.5-5.1); SGOT/AST 32 U/L (14-36); SGPT/ALT 21 U/L (0-35); SODIUM 135 mmol/L (137-145); Total Protein 6.3 g/dL (6.3-8.2)
[2023-03-01 15:17] LABS: HCG SERUM TEST NEGATIVE (NEGATIVE)
[2023-03-01] MEDS ORDERED: Sodium Chloride 0.9% W/ 20 mEq KCl/LITER 1,000 ML IV ONE (15:45)
[2023-03-01] MEDS: Sodium Chloride 0.9% W/ 20 mEq KCl/LITER 1,000 ML IV SCH ×2 (15:46→17:50)
[2023-03-01 15:47] LABS: INFLUENZA A NEGATIVE (NEGATIVE); INFLUENZA B NEGATIVE (NEGATIVE); RESPIRATORY SYNCTIAL VIRUS NEGATIVE (NEGATIVE); SARS-CoV-2 Xpert Express NEGATIVE (NEGATIVE)
[2023-03-01] MEDS ORDERED: BABY ASPIRIN 81 MG CHEW PO ONE (16:06)
[2023-03-01] MEDS ORDERED: MORPHINE SULFATE 2 MG INJ IV ONE (16:06)
[2023-03-01] MEDS ORDERED: BABY ASPIRIN 81 MG CHEW ONE (16:08)
[2023-03-01] MEDS ORDERED: MORPHINE SULFATE 2 MG INJ ONE (16:08)
[2023-03-01] MEDS ORDERED: ROCEPHIN 1 Gm-D5w 50 ml Bag** 1 G/50 ML IVPB IV STA (16:11)
[2023-03-01] MEDS ORDERED: ROCEPHIN 1 Gm-D5w 50 ml Bag** 1 G/50 ML IVPB IV ONE (16:26)
[2023-03-01 16:35] LABS: Appearance Turbid (Clear); Bacteria Moderate /HPF (None Seen); Bilirubin Negative (Negative); Blood Large (Negative); Epithelial Cells Many /HPF (None Seen); Glucose, Urine 250 mg/dL (Negative); Ketones Trace (Negative); Leukocyte Esterase Large (Negative); Nitrite Negative (Negative); Ph 5.5 (4.6-8.0); Protein,Urine Dip 100 (Negative); RBC 21-50 /HPF (0-5); WBC >100 /HPF (0-5)
--- NOTE | 2023-03-01 16:38 | XRAY ---
Indication: Dyspnea. Multiple contiguous axial images obtained through the chest using 80 cc Isovue 370 contrast and PE protocol. Comparison: None Adequate opacification of the pulmonary arteries to include the lobar and segmental branches. No pulmonary embolus. Heart not enlarged. Aorta is normal in course and caliber. No pathologic mediastinal/hilar lymphadenopathy. Lungs demonstrates bilateral dependent atelectasis. No suspicious pulmonary mass/nodule, infiltrate, effusion, or pneumothorax. Bony thorax intact with minimal degenerative changes throughout the spine. Incidental T9/T11 Sch[address] nodes[address] abdomen/pelvis reported separately. Impression: Normal CT chest PE exam. Incidental dependent atelectasis and T9/T11 Schmorl nodes.
[2023-03-01 16:42] LABS: BAND 3 % (0.0-2.0); Lymphocytes 2 % (24-44); Metamyelocyte 1 %; Neutrophils 94 % (36.0-66.0); Total Cells Counted 100
--- NOTE | 2023-03-01 16:42 | XRAY ---
Indication: Right abdomen pain. Multiple contiguous axial images obtained through the abdomen and pelvis prior to and following 80 cc Isovue 370 contrast as ordered. Impression: None CT chest reported separately. Noncontrasted images are negative for pathologic visceral calcifications/calculi. Noncontrasted stomach and bowel loops appear nonobstructed with normal appearing appendix. Previous cholecystectomy. Postcontrast images demonstrates normal visceral enhancement. Diffusely edematous and prominent right kidney with patchy enhancement and perinephric stranding favoring nephritis. Also tiny right perinephric fluid presumed reactive. No right renal excretion on delayed imaging. Incidental 1.5 cm left mid renal cortical cyst. Remaining liver, pancreas, spleen, adrenal glands, ureters, bladder, and uterus are unremarkable. Minimal aortoiliac calcifications. No AAA or pathological retroperitoneal lymphadenopathy. Osseous structures intact. Impression: 1. Diffusely edematous and prominent right kidney with patchy enhancement and perinephric stranding favoring nephritis. Tiny reactive perinephric fluid. 2. Incidental left renal cyst. 3. Remaining CT abdomen/pelvis with and without contrast exam is negative.
[2023-03-01 16:47] LABS: ADD URINE CULTURE? ORDERED SEPARATELY (NO); Hyaline Casts 20-50 /LPF (0-2)
[2023-03-01] MEDS: Sodium Chloride 0.9% 1000 ML 1,000 ML IV SCH (17:51)
[2023-03-01] MEDS ORDERED: BENADRYL 50 MG/ML IV ONE (18:11)
[2023-03-01] MEDS ORDERED: BENADRYL 50 MG/ML ONE (18:16)
[2023-03-01] MEDS ORDERED: Nitrostat 0.4 MG (ED) SL ONE ×2 (19:36→20:07)
[2023-03-01] MEDS ORDERED: HYDROCODONE-ACETAMIN 2.5-108/5 ML SOLUTION PO STA (22:45)
[2023-03-01] MEDS ORDERED: TYLENOL 325 MG PO ONE (22:46)
[2023-03-01] MEDS ORDERED: HYDROCODONE-ACETAMIN 2.5-108/5 ML SOLUTION ONE (22:50)
[2023-03-01] MEDS ORDERED: TYLENOL 325 MG ONE (22:51)
[2023-03-01] MEDS ORDERED: NEURONTIN PO ONE (23:11)
[2023-03-01] MEDS ORDERED: NORCO 7.5/325 MG TAB PO ONE (23:12)
[2023-03-02] MEDS ORDERED: Klor Con PO ONE ×2 (00:05→01:05)
--- NOTE | 2023-03-02 01:58 | XRAY ---
CLINICAL HISTORY:Unable to move her legs COMPARISON:None. TECHNIQUE:An axial non-contrast CT scan of the brain was performed from the skull base to the high parietal region. FINDINGS: The visualized brain parenchyma shows lindsay-white matter differentiation. No midline shift. No intracerebral or extra axial hematoma. Normal size and configuration of the cerebral ventricles. Normal CT appearance of the posterior fossa structures. The osseous structures in the skull base are unremarkable. No definite calvarium fractures. Scanned paranasal sinuses and mastoid air cells are clear. IMPRESSION: No evidence of acute intracranial or acute territorial infarction. Clinical events or indications persist, consider MRI with DWI sequence for further analysis and the patient with acute stroke symptoms. Electronically Signed by: Curtis Aguirre MD. (03/02/2023 00:56:30 SIGNAL OPERATOR LINGUIST)
[2023-03-02] MEDS ORDERED: Cyclobenzaprine 10 MG PO ONE (02:29)
[2023-03-02] MEDS ORDERED: Cyclobenzaprine 10 MG ONE (02:30)
[2023-03-02] MEDS: Sodium Chloride 0.9% 1000 ML 1,000 ML IV SCH ×2 (03:59→14:14)
[2023-03-02 05:21] LABS: Absolute Neutrophil Ct (ANC) 22.35 x10^3/uL (1.4-6.9); BASOPHIL % 0.2 % (0.0-0.4); Basophil (Absolute #) 0.05 x10^3/uL (0-0.4); Eosinophil % 0.2 % (0.00-5.0); Eosinophil (Absolute #) 0.04 x10^3/uL (0-0.5); Hematocrit 35.1 % (35-47); Hemoglobin 11.6 g/dL (12.0-16.0); IMMATURE GRAN # 0.46 x10^3u/L (0.00-0.03); IMMATURE GRAN % 1.9 % (0.00-0.4); Lymphocyte (Absolute #) 1.01 x10^3/uL (1.0-4.6); Lymphocytes % 4.1 % (24.0-44.0); Mean Cell Volume 90.9 fL (78-100); Mean Corpuscular Hemoglobin 30.1 pg (26-32); Mean Platelet Volume 9.4 fL (7.5-11.0); Monocyte (Absolute #) 0.61 x10^3/uL (0.0-1.3); Monocytes % 2.5 % (0.0-12.0); Neutrophil % 91.1 % (36.0-66.0); Platelet Count 357 x10^3/uL (150-450); Red Blood Count 3.86 x10^6/uL (4.1-5.4); White Blood Count 24.5 x10^3/uL (4.0-10.5)
[2023-03-02 05:34] LABS: ALBUMIN 2.3 g/dL (3.5-5.0); ALKALINE PHOSPHATASE 395 U/L (38-126); ANION GAP 8.4 MEQ/L (5-15); BLOOD UREA NITROGEN 28 mg/dL (7-17); CHLORIDE 103 mmol/L (98-107); Calcium 7.4 mg/dL (8.4-10.2); Carbon Dioxide 25 mmol/L (22-30); Creatinine 1 0.71 mg/dL (0.52-1.04); EST GLOMERULAR FILTRATION RATE > 60.0 ML/MIN; Glucose 225 mg/dL (74-106); Potassium 3.4 mmol/L (3.5-5.1); SGOT/AST 22 U/L (14-36); SGPT/ALT 17 U/L (0-35); SODIUM 132 mmol/L (137-145); Total Protein 5.4 g/dL (6.3-8.2)
[2023-03-02 05:51] LABS: Slide Review 1 YES
[2023-03-02] MEDS ORDERED: Sodium Chloride 0.9% 1000 ML 1,000 ML IV SCH (06:00)
[2023-03-02] MEDS ORDERED: NORCO 7.5/325 MG TAB PO ONE (06:10)
[2023-03-02] MEDS ORDERED: HEPARIN 5000 UNITS/0.5 ML (HIGH RISK MED) IV ONE (07:03)
[2023-03-02 07:54] LABS: INR 1.02 (0.8-3.0); PROTIME 11.1 SECONDS (9.4-12.5)
[2023-03-02] MEDS ORDERED: NEURONTIN PO ONE ×2 (08:18→15:45)
[2023-03-02] MEDS ORDERED: HUMALOG ONE (08:27)
[2023-03-02] MEDS ORDERED: HEPARIN 5000 UNITS/0.5 ML (HIGH RISK MED) ONE (08:27)
[2023-03-02] MEDS ORDERED: ROCEPHIN 1 Gm-D5w 50 ml Bag** 1 G/50 ML IVPB IV STA (08:30)
[2023-03-02] MEDS ORDERED: ROCEPHIN 1 Gm-D5w 50 ml Bag** 1 G/50 ML IVPB IV ONE (08:48)
[2023-03-02] MEDS ORDERED: Coreg 3.125 MG PO SCH (10:00)
[2023-03-02] MEDS ORDERED: MORPHINE SULFATE 2 MG INJ IV ONE ×2 (10:43→15:27)
[2023-03-02] MEDS ORDERED: MORPHINE SULFATE 2 MG INJ ONE ×2 (10:50→15:32)
[2023-03-02] MEDS ORDERED: Sodium Chloride 0.9% 1000 ML 1,000 ML ONE (14:14)
[2023-03-02 16:18] VITALS: BP 179/105; PULSE 93; O2SAT 96
[2023-03-02 16:26] VITALS: RESP 15
[2023-03-03] MEDS ORDERED: HUMALOG SQ SCH (08:00)
== END 2023-03-02 16:53 | disposition short-term general hospital (02) ==
LOC: ED 13:59
DX: N39.0 Urinary tract infection, site not specified (principal); N12 Tubulo-interstitial nephritis, not specified as acute or chronic; R77.8 Other specified abnormalities of plasma proteins; D72.829 Elevated white blood cell count, unspecified; R50.9 Fever, unspecified; R10.31 Right lower quadrant pain; R11.10 Vomiting, unspecified; R06.02 Shortness of breath; J02.9 Acute pharyngitis, unspecified; E78.5 Hyperlipidemia, unspecified; I10 Essential (primary) hypertension; E11.42 Type 2 diabetes mellitus with diabetic polyneuropathy; Z79.84 Long term (current) use of oral hypoglycemic drugs; Z79.891 Long term (current) use of opiate analgesic; Z79.4 Long term (current) use of insulin; Z79.85 Long-term (current) use of injectable non-insulin antidiabetic drugs; Z79.899 Other long term (current) drug therapy; Z72.0 Tobacco use
CPT/HCPCS: 0241U; 36000; 36415; 70450; 71260; 74178; 80053; 81001; 82150; 82805; 82947; 83605; 83690; 83735; 84484; 84703; 85025; 85610; 85730; 86308; 87040; 87077; 87086; 87186; 87651; 93005; 93041; 96360; 96361; 96372; 96374; 96375; 96376; 99285; J0696; J1200; J1644; J1817; J1885; J2270; J2405; P9612; A9270-GY

== ENCOUNTER 2023-04-21 08:34 | Day surgery (SDC) | payer OTHER ==
[2023-04-21] MEDS ORDERED: Depo-Medrol 40 MG/ML IM ONE (08:35)
[2023-04-21] MEDS ORDERED: Sodium Chloride 0.9(Preservative Free) 10 ML IJ ONE (08:35)
[2023-04-21 09:40] LABS: HCG URINE TEST NEGATIVE (NEGATIVE)
[2023-04-21] MEDS ORDERED: DIPRIVAN 200 MG/20 ML IV ONE (12:01)
[2023-04-21] MEDS ORDERED: MORPHINE SULFATE 2 MG INJ ONE (12:32)
[2023-04-21] MEDS ORDERED: Lactated Ringers 1,000 ML IV ONE (13:44)
--- NOTE | 2023-04-21 21:01 | XRAY ---
Indication: Caudal SHANIA. Intraoperative fluoroscopy provided for 30 seconds. 7 digital spot image submitted for interpretation demonstrates caudal needle tip mid sacrum. Small amount of contrast injected for needle tip placement. Correlate with intraoperative findings/report.
--- NOTE | 2023-04-21 21:43 | XRAY ---
30 seconds of fluoroscopy was used in surgery for a caudal SHANIA.
== END 2023-04-21 12:45 | disposition home or self-care (01) ==
LOC: SDC-PAIN 08:34
PROVIDERS: ATTEND Psychiatry & Neurology Pain Medicine
DX: M54.16 Radiculopathy, lumbar region (principal); E11.9 Type 2 diabetes mellitus without complications
CPT/HCPCS: 62323; 72220; 77003; 81025; 82947; J1030; J2270; J2704; Q9966

== ENCOUNTER 2024-07-12 08:20 | Day surgery (SDC) | payer OTHER ==
[2024-07-12] MEDS ORDERED: LIDOCAINE HCL 2% 100 MG/5 ML IJ ONE (08:21)
[2024-07-12 08:41] LABS: HCG URINE TEST NEGATIVE (NEGATIVE)
[2024-07-12] MEDS ORDERED: propofoL IV ONE (10:04)
--- NOTE | 2024-07-12 13:05 | XRAY ---
Indication: Bilateral L4-S1 MBB. Intraoperative fluoroscopy provided for 14 seconds. Single digital spot image submitted for interpretation demonstrates posterior needle tips projecting over expected left and right L4-S1 nerve roots. Correlate with intraoperative findings/report.
--- NOTE | 2024-07-12 13:12 | XRAY ---
14 seconds of fluoroscopy was used in surgery for a bilateral L4-S1 MBB.
== END 2024-07-12 10:38 | disposition home or self-care (01) ==
LOC: SDC-PAIN 08:20
PROVIDERS: ATTEND Psychiatry & Neurology Pain Medicine
DX: M47.816 Spondylosis without myelopathy or radiculopathy, lumbar region (principal); E11.9 Type 2 diabetes mellitus without complications
CPT/HCPCS: 64493; 64494; 72020; 77002; 81025; 82947; J2704

== ENCOUNTER 2024-08-01 14:12 | Emergency (ER) | payer OTHER ==
[2024-08-01 14:34] VITALS: TEMP 97.4
--- NOTE | 2024-08-01 14:59 | ERPHSYRPT ---
- History of Present Illness Time Seen by Provider: 08/01/24 14:35 Source: patient Exam Limitations: no limitations Patient Subjective Stated Complaint: pt states that doctors office called and stated that kidney levels are not normal Triage Nursing Assessment: pt came into the er via wheelchair; pt transfer to cot per self; pt is axo x4; c/o abdnormal labs; pt states 8/10 chronic pain to back; skin PDW; stage III pressure to left lower lateral leg that measures 4 cm x 2 cm; 3+ pitting edema to BLE; no respiratory distress present; hypertensive Physician History: Patient is a 44-year-old female with a history of diabetic nephropathy. Patient reports that her accreditation coordinator at [facility] recently completed a lab workup in preparation for an upcoming back surgery. The lab workup revealed an acutely abnormal kidney function with a GFR of 21. Patient states her accreditation coordinator called her and informed her of the findings and advised her to follow-up at her nearest emergency department. Patient presented to our ED as we are the nearest to her home. Patient otherwise asymptomatic. Patient admits to sciatica. She is currently obtaining preoperative workup for a laminectomy. Mother at bedside. They voiced no other complaints or concerns at this time. Portions of this note were created with voice recognition technology. There may be grammatical, spelling, punctuation or sound alike errors Timing/Duration: today Severity: mild Modifying Factors: Improves With: nothing Associated Symptoms: denies symptoms Allergies/Adverse Reactions: erythromycin base Adverse Reaction (Verified 08/01/24 14:20) Itching PT STATES ITCHING/SWELLING Home Medications: Gabapentin [Neurontin] 1,200 mg PO TID 05/10/14 [History] Levothyroxine Sodium 88 Mcg [Synthroid 88 Mcg] 88 mcg PO DAILY 05/10/14 [History] lisinopriL [Lisinopril] 40 mg PO DAILY 05/10/14 [History] Carvedilol 3.125 mg [Coreg 3.125 MG] 3.125 mg PO BID 06/20/15 [History] Bupropion HCl Xl 150 mg [Wellbutrin XL 150 MG] 150 mg PO DAILY 11/28/22 [History] Cyclobenzaprine HCl 10 mg [Cyclobenzaprine 10 MG] 10 mg PO BID 11/28/22 [History] Empagliflozin [Jardiance] 10 mg PO DAILY 11/28/22 [History] Furosemide 40 mg [Lasix 40 MG] 40 mg PO DAILY 11/28/22 [History] Hydrocodone/Acetaminophen [Hydrocodone-Acetamin 7.5-325] 1 each PO BID 11/28/22 [History] Insulin Glargine,Hum.rec.anlog [Basaglar Kwikpen U-100] 20 unit SQ HS 11/28/22 [History] Insulin Lispro [Admelog] 15 unit SQ AC 11/28/22 [History] Atorvastatin Calcium [Lipitor] 10 mg PO DAILY 03/01/23 [History] Pantoprazole 20 mg [Protonix 20MG Tablet] 20 mg PO DAILY 03/01/23 [History] Semaglutide [Ozempic] 0.25 mg SQ UD 03/01/23 [History] Hx Tetanus, Diphtheria Vaccination/Date Given: No Hx Influenza Vaccination/Date Given: No Hx Pneumococcal Vaccination/Date Given: No Travel Risk - International Travel Have you traveled outside of the country in past 3 weeks: No - Emerging Infectious Disease Are you exhibiting symptoms associated with any current EIDs: No - Review of Systems Constitutional: No Symptoms, No Fever, No Chills Eyes: No Symptoms Ears, Nose, & Throat: No Symptoms Respiratory: No Symptoms, No Cough, No Dyspnea Cardiac: No Symptoms, No Chest Pain, No Edema, No Syncope Abdominal/Gastrointestinal: No Symptoms, No Abdominal Pain, No Nausea, No Vomiting, No Diarrhea Genitourinary Symptoms: No Symptoms, No Dysuria Musculoskeletal: No Symptoms, No Back Pain, No Neck Pain Skin: No Symptoms, No Rash Neurological: No Symptoms, No Dizziness, No Focal Weakness, No Sensory Changes Psychological: No Symptoms Endocrine: No Symptoms Hematologic/Lymphatic: No Symptoms Immunological/Allergic: No Symptoms All Other Systems: Reviewed and Negative - Past Medical History Pertinent Past Medical History: Yes Neurological History: Peripheral Neuropathy ENT History: No Pertinent History Cardiac History: High Cholesterol, Hypertension Respiratory History: Asthma Endocrine Medical History: Diabetes Type II, Hypothyroidism Musculoskeletal History: Arthritis, Fractures GI Medical History: Polyps History: Other Psycho-Social History: Depression Female Reproductive Disorders: No Pertinent History Other Medical History: R foot fx; likely 5th MT based on hx. kidney stones - Past Surgical History Past Surgical History: Yes Neuro Surgical History: No Pertinent History Cardiac: No Pertinent History, Other Respiratory: No Pertinent History Gastrointestinal: No Pertinent History Genitourinary: No Pertinent History Musculoskeletal: No Pertinent History Female Surgical History: Section, Tubal Ligation Other Surgical History: , kidney stones removed, tubes in ears times 2,tonsil - Female History Hx Now: No - Social History Smoking Status: Current every day smoker How long have you smoked: 20 years Exposure to second hand smoke: No Drug Use: none - Social Determinants of Health Will the patient participate in the screening: Yes Do you worry about a steady place to live?: No Do you have any problems with any of the following?: No known problems In the past 12 months,have you had to go without utilities?: No Transportation Issues: No Has anyone in your support network made you feel unsafe?: No Have you or anyone in your house had to go w/o enough food: No - Nursing Vital Signs Nursing Vital Signs: Initial Vital Signs Temperature 97.4 F 08/01/24 14:22 Pulse Rate 93 H 08/01/24 14:22 Respiratory Rate 17 08/01/24 14:22 Blood Pressure 186/99 08/01/24 14:22 O2 Sat by Pulse Oximetry 100 08/01/24 14:22 Pain Scale Pain Intensity 8 - Physical Exam General Appearance: no apparent distress, alert, other (Patient conversant well- appearing and in no acute distress) Eye Exam: PERRL/EOMI, eyes nml inspection Ears, Nose, Throat Exam: normal ENT inspection, moist mucous membranes Neck Exam: normal inspection, supple, full range of motion Respiratory Exam: normal breath sounds, lungs clear, airway intact, No respiratory distress Cardiovascular Exam: regular rate/rhythm, normal peripheral pulses Gastrointestinal/Abdomen Exam: soft, normal bowel sounds, No tenderness, No mass Back Exam: normal inspection, normal range of motion, No CVA tenderness, No vertebral tenderness Extremity Exam: normal inspection, normal range of motion, pelvis stable, other (3+ pitting edema. 4 cm x 2 cm left lower extremity wound appears to be venous stasis ulcer) Neurologic Exam: alert, oriented x 3, cooperative, normal mood/affect, sensation nml, No motor deficits Skin Exam: normal color, warm, dry, No rash Lymphatic Exam: No adenopathy SpO2 Interpretation: normal SpO2: 100 O2 Delivery: Room Air - Course Nursing assessment & vital signs reviewed: Yes - Progress Progress: unchanged Progress Note: 44-year-old female history of diabetic nephropathy presents to our ED. Patient was contacted by her accreditation coordinator who advised her to follow-up at her nearest hospital due to acute change in her kidney function. We obtained patient's outpatient labs that were ordered by her accreditation coordinator. Patient's potassium is 4.5. GFR 21 UA shows significant proteinuria. Likely contributing to patient's lower extremity edema. I contacted patient's accreditation coordinator Dr. Adan Tompkins MD who wanted her to go to a hospital with a accreditation coordinator and a urologist on staff. We are critical access and do not have the services immediately available but can potentially transfer for to a facility with the services. We advised patient that we can repeat labs and transfer accordingly. Patient declined. Patient states that she receives her care at [facility] and that her mother will drive her there. Per patient's request she was discharged accordingly. Patient reports that her mother will drive her to [facility] for these services as per her accreditation coordinator request. Portions of this note were created with voice recognition technology. There may be grammatical, spelling, punctuation or sound alike errors Complexity of problem addressed is moderate acute complicated. No critical care time. Complex of data reviewed and analyzed extensive. I reviewed the outpatient labs that were ordered by patient's accreditation coordinator. Results were analyzed and correlated clinically with history and physical exam. Management discussed with patient's accreditation coordinator who request patient obtain evaluation by a accreditation coordinator and urologist. Risk of complication and or risk of morbidity/mortality of patient management is low. Vital stable. Time spent to discharge patient is approximately 15 minutes. Plan of care established for shared decision making. No social determinants of health present to impede follow-up. Portions of this note were created with voice recognition technology. There may be grammatical, spelling, punctuation or sound alike errors 08/01/24 15:08 Counseled pt/family regarding: diagnosis, need for follow-up Medical Desision Making - Independent Historian Additional History obtained from: Mother - External Record(s) Reviewed Records reviewed as a part of evaluation & management: Clinic - Discussion of managment Care discussed with:: specialist Reviewed:: Test results Agreed on:: Treatment plan Will see patient: in hospital - Risk of complications Low Risk: Low risk of morbidity from additional dx testing or treatment - Departure Departure Disposition: Home Clinical Impression: Acute renal injury, Lower extremity edema, Chronic back pain Condition: Stable Critical Care Time: No Referrals: JAVIER FLETCHER [Primary Care Provider] - Follow up/PCP as directed Additional Instructions: Discharge/Care Plan PHILLIP UREÑA was seen on 08/01/24 in the Emergency Room. The patient was counseled regarding Diagnosis,Lab results, Imaging studies, need for follow up and when to return to the Emergency Room. Prescriptions given: Discharge Note I have spoken with the patient and/or caregivers. I have explained the patient's condition, diagnosis and treatment plan based on the information available to me at this time. I have answered the patient's and/or caregiver's questions and addressed any concerns. The patient and/or caregivers have as good understanding of the patient's diagnosis, condition and treatment plan as can be expected at this point. The vital signs have been stable. The patient's condition is stable and appropriate for discharge from the emergency department. The patient will pursue further outpatient evaluation with the primary care ph ysician or other designated or consulting physician as outlined in the discharge instructions. The patient and/or caregivers are agreeable to this plan of care and follow-up instructions have been explained in detail. The patient and/or caregivers have received these instruction. The patient/and or caregivers are aware that any significant change in condition or worsening of symptoms should prompt an immediate return to this or the closest emergency department or call 911.
[2024-08-01 15:03] VITALS: BP 188/108; PULSE 91; RESP 11
[2024-08-01 15:06] VITALS: O2SAT 100
== END 2024-08-01 15:08 | disposition home or self-care (01) ==
LOC: ED 14:12
DX: N17.9 Acute kidney failure, unspecified (principal); R60.0 Localized edema; G89.29 Other chronic pain; M54.50 Low back pain, unspecified; E11.21 Type 2 diabetes mellitus with diabetic nephropathy; E11.42 Type 2 diabetes mellitus with diabetic polyneuropathy; E78.5 Hyperlipidemia, unspecified; I10 Essential (primary) hypertension; Z79.84 Long term (current) use of oral hypoglycemic drugs; Z79.4 Long term (current) use of insulin; Z79.85 Long-term (current) use of injectable non-insulin antidiabetic drugs; Z79.899 Other long term (current) drug therapy; Z72.0 Tobacco use
CPT/HCPCS: 99282

== ENCOUNTER 2025-05-07 06:42 | Day surgery (SDC) | payer OTHER ==
[2025-05-07] MEDS: D50W 50 ml Abboject IV ONE (07:16)
[2025-05-07 07:34] LABS: Calcium 9.1 mg/dL (8.4-10.2); Carbon Dioxide 18.0 mmol/L (22-30); Creatinine 1 3.65 mg/dL (0.52-1.04); EST GLOMERULAR FILTRATION RATE 15.1 ML/MIN; Glucose 55.0 mg/dL (74-106); Potassium 3.4 mmol/L (3.5-5.1)
[2025-05-07] MEDS ORDERED: propofoL IV ONE (08:00)
[2025-05-07 08:56] VITALS: TEMP 96.9; O2SAT 95
[2025-05-07 09:09] VITALS: BP 131/69; PULSE 85; RESP 15
--- NOTE | 2025-05-08 11:18 | OP ---
SURGERY DATE/TIME: 05/07/2025 [id number] PREOPERATIVE DIAGNOSIS: History of colon polyps. POSTOPERATIVE DIAGNOSIS: Normal colon. PROCEDURE: Colonoscopy. SURGEON: Parviz Torrez MD. ANESTHESIA: Medication given by the anesthesia department. INDICATIONS: The patient is a 44-year-old white female presenting now for screening colon exam. She reports that 5 years previously, she had colon polyps removed. The patient felt need to have endoscopic evaluation. She was apprised of the risks of the procedure including risks of perforation, phlebitis, untoward reaction to medication, bleeding, and missed lesions. The patient verbalized her understanding and desired to have procedure performed. DESCRIPTION OF PROCEDURE AND FINDINGS: The patient was given medication by the anesthesia department. She had continuous pulse oximetry, ECG monitoring, and intermittent blood pressure monitoring during the examination. She was placed in the left lateral decubitus position. Digital rectal examination was performed revealed normal anal sphincter tone and no masses. Flexible Olympus videocolonoscope was used to intubate the rectum. A view of the colon was developed sequentially to the cecum. Upon insertion and withdrawal, including retroflexed view in the rectum, no mucosal lesions were encountered. The scope was removed from the patient, who tolerated the procedure well, and was sent back to outpatient recovery unit in good condition. The prep was noted to be fair.
== END 2025-05-07 10:05 | disposition home or self-care (01) ==
LOC: SDC 06:42
PROVIDERS: ATTEND Family Medicine
DX: Z09 Encounter for follow-up examination after completed treatment for conditions other than malignant neoplasm (principal); Z86.0100 Personal history of colon polyps, unspecified; I10 Essential (primary) hypertension; E11.9 Type 2 diabetes mellitus without complications